=== PATIENT | male | born 1935 | race Caucasian/White ===

== ENCOUNTER 2017-05-23 02:30 | Inpatient (IN) | payer MEDICARE ==
[~2017-05-23] VITALS: Ht 188 cm; Wt 78.2 kg
[2017-05-23] VITALS (15 sets, daily range): BP systolic 100–168; BP diastolic 58–85; PULSE 65–101; RESP 16–23; O2SAT 93–100
[~2017-05-23 02:30] MED LIST: ACET325T51 PO; ASPI-973 PO; ATOR20TA PO; BISA10SU61 RC; ECON15CR10 TOP; FERR-83 PO; HYDR-4003 PO; LEVO150T5 PO; LISI-567 PO; LOPE1TAB13 PO; MIRT15TA PO; MULT-1018 PO; QUET25TA PO
--- NOTE | 2017-05-23 02:38 | ED.REPORT ---
HPI-Hip/Pelvis Prob/Inj Date of Service May 23, 2017 ED Provider: Long Bush MD Pt is a 81 year old male with a history of HTN, Alzheimer's disease, and dementia who presents to the ED via EMS complaining of left hip pain onset prior to arrival. Per EMS, [facility]. He was found next to his chair and was presumed to have fallen out of his chair, resulting in his left hip pain. The pt was provided Fentanyl en route, the pt to be drowsy on arrival. HPI is limited by pt's condition. Nursing Notes Stated Complaint: LEFT HIP PAIN Chief Complaint: Left hip pain Nursing Notes Reviewed: Yes Allergies: Coded Allergies: No Known Allergies (Verified Allergy, Unknown, 09/18/15) Scheduled Aspirin (Aspirin) 81 Mg Tablet 81 MG PO DAILY Atorvastatin (Lipitor) 20 Mg Tablet 20 MG PO DAILY Econazole Nitrate (Econazole Nitrate) 15 Gm Cream..g. 1 APPL TOP DAILY Ferrous Sulfate (Ferrous Sulfate) 325 Mg Tablet 325 MG PO DAILY Levothyroxine (Levothyroxine) 150 Mcg Tablet 150 MCG PO DAILY Lisinopril (Lisinopril) 20 Mg Tablet 20 MG PO DAILY Mirtazapine (Remeron) 15 Mg Tablet 15 MG PO HS Multivitamin (Multi Vitamin Daily) 1 Each Tablet 1 EACH PO DAILY Quetiapine Fumarate (Seroquel) 25 Mg Tablet 25 MG PO HS Scheduled PRN Acetaminophen (Acetaminophen) 325 Mg Tablet 650 MG PO Q4H PRN PRN For Fever Bisacodyl (Dulcolax Rectal) 10 Mg Supp.rect 10 MG RC DAILY PRN PRN For Bowel Movement Hydrocodone-Acetaminophen 5-325 mg (Hydrocodone-Acetaminophen 5-325 mg) 1 Each Tablet 2 TABLET PO Q4H PRN PRN For Pain Loperamide/Simethicone (Imodium Multi-Symptom Rel Cplt) 1 Each Tablet 1 EACH PO DIRECTED PRN PRN LOOSE STOOL General Time Seen by Provider: 02:30 Chief Complaint Hip injury left Hx Obtained From: Patient, EMS Arrived By: Ambulance Onset Occurred: Just prior to arrival Symptom Duration: Since onset Caused by: Accidental Quality: Painful Radiation: Does not radiate Severity: Current: Moderate Severity: Maximum: Moderate Recent Healthcare: No recent doctor visit, No recent hospitalization Similar Sx Previous: No Past Medical History Past Medical History Hypertension Alzheimer's Dementia UTI Melanoma Past Surgical History Hernia repair x2. History of skin cancer. Thyroidectomy. Pacemaker Smoking History Never Smoker Social History Resides at [facility] Alcohol Use: Denies alcohol use Drug Use: Denies drug use Ambulatory Status Independent Review of Systems ROS limited by pt's condition. Constitutional: Denies: Fever Musculoskeletal: Reports: Joint pain (left hip) Complete sys rev & neg: except as marked. Physical Exam Initial Vital Signs Vital Signs (First) Date Time Temp Pulse Resp B/P Pulse Ox O2 Delivery O2 Flow Rate FiO2 05/23/17 02:57 37.0 85 22 148/83 95 Nasal Cannula 2 Initial VS: Reviewed Head / Eyes: Atraumatic, Normocephalic Neck: Supple, Full range of motion Cardiovascular: Regular rate & rhythm, Heart sounds normal, Intact distal pulses Abdomen / GI: Soft, Non-tender Skin: Warm, Dry, No cyanosis Lower Extremity / Pelvis / MS: Neurologic intact, Vascular intact Left leg fore-shortened. No extremity trauma noted otherwise. GENERAL: Non-verbal and groans. Cannot cooperate with exam or history. Demented. Respiratory / Chest: Atraumatic, Breath sounds NL, Breath sounds = bilat Chest wall is non-tender. Back: Full range of motion Non-tender bony spine. Non-tender thoracolumbar spine. Upper Extremity / MS: Neurologic intact, Vascular intact No extremity trauma noted. Interpretation & Diagnostics Lab Results Interpretation Result Diagram: 05/23/17 0300 05/23/17 0300 Test 05/23/17 03:00 05/23/17 03:30 White Blood Count 6.3th/mm3 (3.8-10.1) Red Blood Count 3.98mil/mm3 (4.40-5.80) Hemoglobin 11.9g/dL (13.8-17.2) Hematocrit 36.9% (41.0-50.0) Mean Corpuscular Volume 92.7fL (81-100) Mean Corpuscular Hemoglobin 29.9pg (27.0-35.0) Mean Corpuscular Hemoglobin Concent 32.2% (32.0-37.0) Red Cell Distribution Width 14.6% (12.3-15.4) Platelet Count 135bil/L (150-400) Neutrophils (%) (Auto) 77.0% (40-74) Lymphocytes (%) (Auto) 14.1% (14-46) Monocytes (%) (Auto) 7.8% (4-12) Eosinophils (%) (Auto) 0.6% (0-5) Basophils (%) (Auto) 0.2% (0-3) Prothrombin Time 10.0sec (8.1-12.5) Prothromb Time International Ratio 0.94ratio Sodium Level 142mEq/L (134-144) Potassium Level 3.9mEq/L (3.5-5.2) Chloride Level 104mEq/L (97-108) Carbon Dioxide Level 24mmol/L (18-29) Blood Urea Nitrogen 27mg/dL (8-27) Creatinine 1.30mg/dL (0.76-1.27) Estimat Glomerular Filtration Rate 56mL/min (>59) Glucose Level 128mg/dL (60-99) Calcium Level 8.9mg/dL (8.5-10.1) Magnesium Level 2.0mg/dL (1.6-2.6) Total Bilirubin 0.6mg/dL (0.0-1.2) Aspartate Amino Transf (AST/SGOT) 16U/L (0-50) Alanine Aminotransferase (ALT/SGPT) 12U/L (0-44) Alkaline Phosphatase 63U/L (25-160) Troponin T 0.010ug/L (0.0-0.011) Total Protein 6.9g/dL (6.4-8.4) Albumin 3.9g/dL (3.4-5.0) Hold Kendall Top Tube Received (Received) Urine Color Yellow (YELLOW) Urine Appearance Clear (CLEAR,HAZY) Urine pH 6.0 (5.0-8.0) Urine Specific [place] 1.020 (1.003-1.035) Urine Protein 30mg/dL (NEG,TRACE) Urine Glucose (UA) Negativemg/dL (NEGATIVE) Urine Ketones Tracemg/dL (NEGATIVE) Urine Occult Blood Negative (NEGATIVE) Urine Nitrite Negative (NEGATIVE) Urine Bilirubin Negative (NEGATIVE) Urine Urobilinogen Normalmg/dL (NORMAL) Urine Leukocyte Esterase Negative (NEGATIVE) Urine RBC 0-2/hpf (0-2) Urine WBC 0-5/hpf (0-5) Urine Epithelial Cells Few/hpf (NONE-MOD) Urine Crystals None seen (NONE SEEN) Urine Bacteria Few/hpf (NONE-FEW) Urine Hyaline Casts None/lpf (NONE) Urine Granular Casts None seen (NONE SEEN) Urine Waxy Casts None seen (NONE SEEN) Urine Red Blood Cell Casts None seen (NONE SEEN) Urine White Blood Cell Casts None seen (NONE SEEN) Urine Mucus None seen (None Seen) Urine Trichomonas None seen (NONE SEEN) Urine Yeast None (NONE SEEN) Urinalysis Comment None Urine Culture Reflexed Not indicated Lab values outside NL range: no clinical significance. ECG Interpretation ECG Interpretation: Atrial fibrillation/flutter and V-paced complexes with a rate of 78 Time: 03:17 Interpreted by: ED physician X-Ray Chest Interpretation Chest Xray Interpretation: Retrocardiac left lower lobe pneumonia View: Portable, 1 view Interpretation / Wet Read by: Wet read ED physician X-Ray Interpretation Xray Interpretation: Left femoral neck fracture X-Ray Ordered: Hip left Interpretation / Wet Read by: Wet read ED physician Re-Eval/Medical Decision Med Decision/Clinical Course 81-year-old with profound dementia fell and broke his left hip. Preoperative evaluation is unremarkable with the exception of some increased density in the left lower lobe retrocardiac area. He has no other clinical evidence of pneumonia. He will be evaluated by the hospitalist service preoperatively. His case was discussed with Dr. Cha and with Dr. Restrepo Source of Hx: Old records Re-Evaluation/Progress #1: Time of Eval: 02:56 Re-Evaluation/Progress Note: Pt rechecked. He is resting comfortably. All questions addressed. Re-Evaluation/Progress #2: Time of Eval: 04:46 Re-Evaluation/Progress Note: Pt rechecked. Informed pt and his daughter of plan for admission. His daughter understands and agrees with plan for admission. All questions addressed. Re-Evaluation/Progress #3: Time of Eval: 05:18 Re-Evaluation/Progress Note: Pt rechecked. Examined pt's back. All questions addressed. Consultation #1: Referral / Consult Name: Brent Gilliland MD Consulted With: Orthopedic Call Returned at: 03:16 Procurement Internship: Agrees with eval, Agrees with plan Note: Discussed pt's case. Consultation #2: Referral / Consult Name: Naveen Cha MD Consulted With: Hospitalist Call Returned at: 04:40 Procurement Internship: Will see patient, Agrees with eval, Agrees with plan, Accepts admit Counseled Regarding: Diagnosis, Lab results, Need for admission Discharge & Departure Impression: Primary Impression: Hip fracture, left Encounter type: initial encounter Fracture type: closed Qualified Code: S72.002A - Fracture of unspecified part of neck of left femur, initial encounter for closed fracture Disposition: ADMITTED TO HOSPITAL Discharge Condition All VS Reviewed: Yes Condition: Stable Referrals: NOPCP (PCP) Ryan Fleming Attestation Portions of this note were transcribed by Linda Jiménez. I, Dr. Bush personally performed the history, physical exam and medical decision-making; I reviewed and confirmed the accuracy of the information in the transcribed note. Signed by: Charity Mccoy, 05/23/17. copies to: Ryan Fleming Howard L MD May 23, 2017 02:38 Linda Schultz May 23, 2017 02:52
[2017-05-23 03:07] LABS: BASOPHILS % (AUTO) 0.2 % (0-3); EOSINOPHILS % (AUTO) 0.6 % (0-5); MONOCYTES % (AUTO) 7.8 % (4-12); Mean Corpuscular Hemoglobin 29.9 pg (27.0-35.0); Mean Corpuscular Volume 92.7 fL (81-100); Platelet Count 135 bil/L (150-400)
[2017-05-23 03:26] LABS: INR 0.94 ratio
[2017-05-23 03:31] LABS: TROPONIN T 0.01 ug/L (0.0-0.011)
[2017-05-23 04:20] LABS: APPEARANCE,URINE CLEAR (CLEAR,HAZY); COLOR,URINE YELLOW (YELLOW); OCCULT BLOOD,URINE NEGATIVE (NEGATIVE); UROBILINOGEN,URINE NORMAL (NORMAL)
[2017-05-23] MEDS ORDERED: Alum-Mag Hydrox-Simeth 30 mL Suspension PO PRN (04:50)
[2017-05-23] MEDS ORDERED: Polyethylene Glycol (PEG) 17 Gm Powder PO PRN ×2 (04:50→16:10)
[2017-05-23] MEDS ORDERED: Ondansetron 2 mg/mL 2 mL Inj IVPUSH PRN ×3 (04:50→16:10)
--- NOTE | 2017-05-23 04:56 | PCM.HPMED ---
Subjective Date of Service May 23, 2017 Primary Provider: Admitting Physician: Primary Care Physician: Alvaro Attending Physician: Admit Status: From the Emergency Department, Full Admit, Non-Telemetry Chief Complaint: Left hip pain History of Present Illness: Sal Cleary is a 81 year old male with Hypertension, Alzheimer's disease, and Hypothyroidism who presents to [facility] emergency department via EMS complaining of left hip pain onset prior to arrival. Details of what happen is unclear and the patient is demented, unable to give any details. Daughter was able to provide some details. [facility] at [facility] found the patient on the floor next to his chair in his bed room. It was suspected he might have fallen. The staff tried to get him up to his bed but the patient was uncomfortable and looked like he was in pain. They called 911 Patient had s hip fracture last year and under went surgery with no problems Case discussed with Dr Bush who contacted Dr Gilliland (Orthopedics). X ray confirmed hip fracture and the patient was admitted Review of Systems: unable to obtain due to dementia Allergies Coded Allergies: No Known Allergies (Verified Allergy, Unknown, 09/18/15) Home Medications From [facility], not yet confirmed Sal Cleary [id number] 1935 11/02/2016 01:40 PM 09/06 Aspirin Low Dose 81 mg tablet,delayed release take 4 tablet by oral route every day galantamine ER 24 mg 24 hr capsule,extended release take 1 capsule by oral route every day Imodium A-D 2 mg tablet take 2 tablet by oral route after 1st loose stool and 1 tablet (2 mg) after each next bowel movement; do not exceed 16 mg in 24hrs levothyroxine 200 mcg tablet take 1 tablet by oral route every day Lipitor 20 mg tablet take 1 tablet by oral route every day Milk of Magnesia 400 mg/5 mL oral suspension take 30 milliliter by oral route every day as needed, followed by a full glass (8 oz) of liquid QUETIAPINE 25MG TABLETS TAKE 1 TABLET BY MOUTH EVERY NIGHT AT BEDTIME Remeron 15 mg tablet take 1 tablet by oral route every day before bedtime Toprol XL 25 mg tablet,extended release take 1 tablet by oral route every day Tylenol 325 mg tablet take 1 tablet by oral route every 4 hours as needed PMH Sick sinus syndrome, status post dual chamber pacemaker placement in 2010. Hypertension. Advanced dementia (presumed Alzheimer's type). Hypothyroidism. Essential tremors. Hyperlipidemia. . Surgical History Status post thyroidectomy. Status post hernia repairs x5. Pacemaker placement Open reduction, internal fixation, right nondisplaced subcapital femoral neck fracture. Family History unable to be obtained due to dementia Social History Hx Alcohol Use: No Hx Substance Use: No Hx Tobacco Use: No Smoking Status: Never Smoker Living Arrangement: Other ([facility]) Exam Vital Signs Vital Sign - Last Date Time Temp Pulse Resp B/P Pulse Ox O2 Delivery O2 Flow Rate FiO2 05/23/17 04:46 90 23 139/78 93 Room Air 2 Nasal Cannula 05/23/17 02:57 37.0 Exam General: Alert, Oriented X3, Cooperative, No acute Distress Eyes: PERRLA, Scleral Anicteric Mouth: Mouth Normal, Mucous Membranes Moist/[place] Neck: Supple, no Thyromegaly, trachea central. Chest & Lungs: Clear to auscultation & percussion, No adventitious breath sounds, no crackles, no wheeze Cardiovascular: Normal S1, Normal S2, No Murmurs/Rubs/Gallops, Regular Rate/ Rhythm, Murmur, Other (No JVD, no peripheral edema) Pulses: Radial (present and equal), Dorsalis Pedi (present and equal) Abdomen: Soft, Non-tender, Non-distended, Normoactive bowel tones. Musculoskeletal: Unremarkable. Normal range of motion, no swollen or erythematous joints Extremities: No edema, no cyanosis, no clubbing. Skin: No rashes. Warm and dry, no erythematous areas Neurological: Grossly neurologically intact, has generalized weakness, Normal Speech, Sensation Intact Lymphatic: Lymph nodes Cervical and Axillary not palpable. Lab and Diagnostics Labs Laboratory Tests Test 05/23/17 03:00 05/23/17 03:30 White Blood Count 6.3th/mm3 (3.8-10.1) Red Blood Count 3.98mil/mm3 (4.40-5.80) Hemoglobin 11.9g/dL (13.8-17.2) Hematocrit 36.9% (41.0-50.0) Mean Corpuscular Volume 92.7fL (81-100) Mean Corpuscular Hemoglobin 29.9pg (27.0-35.0) Mean Corpuscular Hemoglobin Concent 32.2% (32.0-37.0) Red Cell Distribution Width 14.6% (12.3-15.4) Platelet Count 135bil/L (150-400) Neutrophils (%) (Auto) 77.0% (40-74) Lymphocytes (%) (Auto) 14.1% (14-46) Monocytes (%) (Auto) 7.8% (4-12) Eosinophils (%) (Auto) 0.6% (0-5) Basophils (%) (Auto) 0.2% (0-3) Prothrombin Time 10.0sec (8.1-12.5) Prothromb Time International Ratio 0.94ratio Sodium Level 142mEq/L (134-144) Potassium Level 3.9mEq/L (3.5-5.2) Chloride Level 104mEq/L (97-108) Carbon Dioxide Level 24mmol/L (18-29) Blood Urea Nitrogen 27mg/dL (8-27) Creatinine 1.30mg/dL (0.76-1.27) Estimat Glomerular Filtration Rate 56mL/min (>59) Glucose Level 128mg/dL (60-99) Calcium Level 8.9mg/dL (8.5-10.1) Magnesium Level 2.0mg/dL (1.6-2.6) Total Bilirubin 0.6mg/dL (0.0-1.2) Aspartate Amino Transf (AST/SGOT) 16U/L (0-50) Alanine Aminotransferase (ALT/SGPT) 12U/L (0-44) Alkaline Phosphatase 63U/L (25-160) Troponin T 0.010ug/L (0.0-0.011) Total Protein 6.9g/dL (6.4-8.4) Albumin 3.9g/dL (3.4-5.0) Hold Kendall Top Tube Received (Received) Urine Color Yellow (YELLOW) Urine Appearance Clear (CLEAR,HAZY) Urine pH 6.0 (5.0-8.0) Urine Specific [place] 1.020 (1.003-1.035) Urine Protein 30mg/dL (NEG,TRACE) Urine Glucose (UA) Negativemg/dL (NEGATIVE) Urine Ketones Tracemg/dL (NEGATIVE) Urine Occult Blood Negative (NEGATIVE) Urine Nitrite Negative (NEGATIVE) Urine Bilirubin Negative (NEGATIVE) Urine Urobilinogen Normalmg/dL (NORMAL) Urine Leukocyte Esterase Negative (NEGATIVE) Urine RBC 0-2/hpf (0-2) Urine WBC 0-5/hpf (0-5) Urine Epithelial Cells Few/hpf (NONE-MOD) Urine Crystals None seen (NONE SEEN) Urine Bacteria Few/hpf (NONE-FEW) Urine Hyaline Casts None/lpf (NONE) Urine Granular Casts None seen (NONE SEEN) Urine Waxy Casts None seen (NONE SEEN) Urine Red Blood Cell Casts None seen (NONE SEEN) Urine White Blood Cell Casts None seen (NONE SEEN) Urine Mucus None seen (None Seen) Urine Trichomonas None seen (NONE SEEN) Urine Yeast None (NONE SEEN) Urinalysis Comment None Urine Culture Reflexed Not indicated Result Diagram: 05/23/1729905/23/17299 Assessment & Plan Sal Cleary is a 81 year old male with Hypertension, Alzheimer's disease, and Hypothyroidism who presents to [facility] emergency department via EMS complaining of left hip pain 1. Acute Left femoral neck fracture. Present on admission. Patient is an acceptable candidate for surgery. No active cardiac conditions. Exercise tolerance is good and I do not recommend any further cardiac testing prior to this intermediate risk procedure - nothing by mouth and Dilaudid IV as need for pain - continue his beta jun postoperatively - DVT prophylaxis with SCD boots, anticoagulation choice accordingly to Ortho - postoperative pain should be treated but psychoactive medications should be minimized to avoid delirium - post operative incentive spirometry - Dr Gilliland consulted from Orthopedics - discussed case with Daughter 2 Acute Kidney injury. Present on admission Likely due to pre renal azotemia in the setting of hypovolemia - IV fluids with normal saline - avoid nephrotoxic insults in hospital 3 Hypertension. Presumed stable - continue Toprol XL 25 mg daily 4 Hypothyroidism. - continue Levothyroxine 200 mcg daily 5 Advanced dementia, Alzheimer's type - continued Remeron 15 mg HS and Seroquel 25 mg HS 6 Hyperlipidemia. - continued Lipitor 20 mg daily - Acetaminophen as needed for mild pain/fever/headache - Bowel regimen as needed - Antiemetic as needed Patient admitted under inpatient status with expected length of stay > 2 midnights for severity of present symptoms, complexities of treatment plan and risk for adverse event . Resuscitation Status: DNR/DNI:Do Not Resuscitate/Intubate Naveen Cha MD May 23, 2017 04:56
--- NOTE | 2017-05-23 05:35 | NUR ---
Admit Patient arrived to floor at 0525. Patient alert to self only. Patient's daughter at bedside. Vitals stable. 2L O2 via NC. Report given by Cinthya GALINDO. Care continues.
[2017-05-23] MEDS ORDERED: 0.9% Sodium Chloride 1,000 ML IV SCH (06:25)
[2017-05-23] MEDS: HYDROmorphone 1 mg/mL Inj IVPUSH PRN ×2 (06:27→13:27)
--- NOTE | 2017-05-23 06:30 | PCM.ADCARE ---
Advance Care Planning Note Purpose of Encounter: Active Diagnoses: Alzheimer's dementia Hypertension Hypothyroidism These active diagnoses are sufficient risk that focused discussion on advance car planning is indicated in order to allow the patient to thoughtfully consider personal goals of care and if situations arise that prevent the ability to personally give input to insure appropriate representation of their personal desires through documentation or informed surrogate decision makers Parties in Attendance: patient, daughter and me Decisional Capacity: Poor as patient is demented Goals of Care Determinations: The daughter is aware of the current diagnosis and would like for the patient to be DNR/DNI. CODE STATUS: DNR/DNI Time Spent Adv.Care Planning: Total time spent [id number] in education and discussion directly related to Advance Care Plannin minutes Naveen Cha MD May 23, 2017 06:30
--- NOTE | 2017-05-23 08:39 | DRSVH ---
PROCEDURE: X-RAY PELVIS W/LAT HIP (LT) ([id number]) INDICATIONS: fall, left hip pain TECHNIQUE: AP pelvis with lateral view(s) of the left hip(s). COMPARISON: None. FINDINGS: Bones: No right-sided fractures or dislocations bilaterally but there is a comminuted intertrochante dillon left hip fracture and prior cannulated in screw in the well-healed right subcapital femoral neck fracture. Pelvic ring appears intact. No suspicious bony lesions. Soft tissues: The visualized bowel gas pattern is normal. No suspicious soft tissue calcifications. IMPRESSION: Comminuted acute left intertrochanteric hip fracture, well-healed prior subcapital right femoral neck fracture. Dictated by: Mayco Fuchs M.D. on 05/23/2017 at 8:37 Approved by: Mayco Fuchs M.D. on 05/23/2017 at 8:38
--- NOTE | 2017-05-23 08:41 | DRSVH ---
PROCEDURE: X-RAY CHEST ONE VIEW, PORTABLE ([id number]) INDICATIONS: preop TECHNIQUE: One view of the chest was acquired. COMPARISON: [facility], CR, XR CHEST 1VW (PORTABLE), 11/30/2015, 16:10. FINDINGS: Surgical changes and devices: Dual-chamber pacemaking device and leads appear normal. Lungs and pleura: No pleural effusions or pneumothorax. Lungs are unchanged with reduced inspiratio n and chronic interstitial prominence. Mediastinum: Mediastinal contours appear normal. Heart size is normal. Bones and chest wall: No suspicious bony lesions. Overlying soft tissues appear unremarkable. IMPRESSION: Cardiac pacemaking device and dual chamber leads normal, no evidence for underlying pneumonia or neoplasm. Reduced inspiratory volume, ionic mild interstitia l prominence. Dictated by: Mayco Fuchs M.D. on 05/23/2017 at 8:38 Approved by: Mayco Fuchs M.D. on 05/23/2017 at 8:40
--- NOTE | 2017-05-23 08:47 | PCM.CONORT ---
Subjective Date of Surgery: May 23, 2017 Surgeon Admitting Provider:Naveen Cha MD Attending Provider:Hermann Montaño MD Primary Care Physician:Alvaro Other Provider: Reason for Consultation: Left hip pain Allergy Allergies: Coded Allergies: No Known Allergies (Verified Allergy, Unknown, 09/18/15) Medications Acetaminophen (Acetaminophen) 325 Mg Tablet 650 MG PO Q4H PRN PRN For Fever ( Reported) Aspirin (Aspirin) 81 Mg Tablet 81 MG PO DAILY (Reported) Atorvastatin (Lipitor) 20 Mg Tablet 20 MG PO DAILY (Reported) Bisacodyl (Dulcolax Rectal) 10 Mg Supp.rect 10 MG RC DAILY PRN PRN For Bowel Movement (Reported) Econazole Nitrate (Econazole Nitrate) 15 Gm Cream..g. 1 APPL TOP DAILY (Reported ) Ferrous Sulfate (Ferrous Sulfate) 325 Mg Tablet 325 MG PO DAILY (Reported) Levothyroxine (Levothyroxine) 150 Mcg Tablet 150 MCG PO DAILY (Reported) Loperamide/Simethicone (Imodium Multi-Symptom Rel Cplt) 1 Each Tablet 1 EACH PO DIRECTED PRN PRN LOOSE STOOL (Reported) Mirtazapine (Remeron) 15 Mg Tablet 15 MG PO HS (Reported) Multivitamin (Multi Vitamin Daily) 1 Each Tablet 1 EACH PO DAILY (Reported) Quetiapine Fumarate (Seroquel) 25 Mg Tablet 25 MG PO HS (Reported) Last Taken: Unknown Dose on 05/22/171999 Discontinued Medications Hydrocodone-Acetaminophen 5-325 mg (Hydrocodone-Acetaminophen 5-325 mg) 1 Each Tablet 2 TABLET PO Q4H PRN PRN For Pain Prescribed by: NATALI NEWMAN MD Lisinopril (Lisinopril) 20 Mg Tablet 20 MG PO DAILY (Reported) History History of ENT Problems?: No HEENT History: Denies:: Abnormal Airway Cataracts Difficult Intubation Dysphagia Glaucoma Hearing Problem Sinus Problem TMJ Denture Type: None Teeth Condition: Within Normal Limits Hx of Heart Problems?: Yes Cardiovascular History: Positive for:: Cardiac Surgery Hypertension Irregular Heartbeat Pacemaker (2010) Denies:: Chest Pain Congestive Heart Failure Edema Heart Murmur Thrombophlebitis Hx of Respiratory Problem?: No Respiratory History: Denies:: Asthma COPD Chest Surgery Cough Dyspnea Emphysema Hemoptysis Oxygen Administration Pneumonia Pulmonary Embolism Tuberculosis Use of C-PAP Machine Use of Inhalers / NEBS Hx Neurologic Problems?: Yes Neurological History: Positive for:: Alzheimer's Disease Dementia Parkinson's Disease Denies:: CVA Dizziness Headaches Seizures Hx of GI Problems?: Yes Hx of Problems?: Yes Genitourinary History: Positive for:: Urinary Tract Infection Denies:: HX of Hemodialysis Kidney Stones HX of Peritoneal Dialysis: No Male Hx: Denies:: Prostate Problems Scrotal Mass Testicular Surgery Hx Musculoskeletal Problems?: Yes Musculoskeletal History: Positive for:: Joint Replacement (right hip) Denies:: Back Injury Musculoskeletal Trauma Other History/Comment Sal Cleary is an 81-year-old male patient who presents to the ER and an orthopedic consult for orthopedic evaluation of their left hip with ongoing symptoms. The patient states that their pain is a distal in nature and mild/ moderate in severity localized in the hip and groin without radiation. This has been progressing over the past few hours after unwitnessed fall from standing. Moreover, the pain is exacerbated by activities, especially with all movement. . Rest seems to improve the symptoms. Patient reports no previous hip pain or associated symptoms with no c licking, no stiffness, no swelling, or weakness. Previous treatment has included none. There is no reports numbness, tingling, or weakness to the affected distal lower extremity. There is no known history of hip problems as a child/adolescent such as SCFE, Perthes, dysplasia, OI, or ligamentous laxity. The patient denies any fever, chills, nausea, vomiting, chest pain, shortness of breath, or calf tenderness. Work/hobbies/sports include: Presents with daughter who is power of attorney lawyer, lives in a memory care center Hx of Psycho/Social Problems?: No Psycho Social History: Positive for:: Hx Depression Denies:: Anxiety Bipolar Disorder Suicide Attempt Hx Surgeries?: Yes (right pinning of hip) Hx Any Other Health Problems?: Yes Other History: Positive for:: Cancer (melanoma head and wrist) Hospitalization Thyroid Disease Denies:: Endocrine Disease History Blood Transfusions: Positive for:: Accept Blood Products? Denies:: Blood Transfuse Reaction Blood Transfusions Hx Diabetes: No Hx Alcohol Use: NoHx Substance Use: No Smoking Status: Never Smoker Have You Smoked inLast 12 mo: No Objective Exam Vital Signs & I/O Vital Sign- Last 8 Hours Date Time Temp Pulse Resp B/P Pulse Ox O2 Delivery O2 Flow Rate FiO2 9/21/17 05:39 37.5 65 20 165/75 100 Nasal Cannula 2.00 05/23/17 04:46 90 23 139/78 93 Room Air 2 Nasal Cannula 05/23/17 02:57 37.0 85 22 148/83 95 Nasal Cannula 2 Intake and Output- Last 8 Hour 05/23/17 Cumulative From/Thru 07:00 05/23/17 02:57 - 05/23/17 05:57 Intake Total 0 ml 0 ml Output Total 200 ml 200 ml Balance -200 ml -200 ml Intake Oral 0 ml 0 ml Output Urine Total 200 ml 200 ml # Bowel Movements 1 1 Lab & Micro Results Laboratory Tests Test 05/23/17 03:00 05/23/17 03:30 White Blood Count 6.3th/mm3 (3.8-10.1) Red Blood Count 3.98mil/mm3 (4.40-5.80) Hemoglobin 11.9g/dL (13.8-17.2) Hematocrit 36.9% (41.0-50.0) Mean Corpuscular Volume 92.7fL (81-100) Mean Corpuscular Hemoglobin 29.9pg (27.0-35.0) Mean Corpuscular Hemoglobin Concent 32.2% (32.0-37.0) Red Cell Distribution Width 14.6% (12.3-15.4) Platelet Count 135bil/L (150-400) Neutrophils (%) (Auto) 77.0% (40-74) Lymphocytes (%) (Auto) 14.1% (14-46) Monocytes (%) (Auto) 7.8% (4-12) Eosinophils (%) (Auto) 0.6% (0-5) Basophils (%) (Auto) 0.2% (0-3) Prothrombin Time 10.0sec (8.1-12.5) Prothromb Time International Ratio 0.94ratio Sodium Level 142mEq/L (134-144) Potassium Level 3.9mEq/L (3.5-5.2) Chloride Level 104mEq/L (97-108) Carbon Dioxide Level 24mmol/L (18-29) Blood Urea Nitrogen 27mg/dL (8-27) Creatinine 1.30mg/dL (0.76-1.27) Estimat Glomerular Filtration Rate 56mL/min (>59) Glucose Level 128mg/dL (60-99) Calcium Level 8.9mg/dL (8.5-10.1) Magnesium Level 2.0mg/dL (1.6-2.6) Total Bilirubin 0.6mg/dL (0.0-1.2) Aspartate Amino Transf (AST/SGOT) 16U/L (0-50) Alanine Aminotransferase (ALT/SGPT) 12U/L (0-44) Alkaline Phosphatase 63U/L (25-160) Troponin T 0.010ug/L (0.0-0.011) Total Protein 6.9g/dL (6.4-8.4) Albumin 3.9g/dL (3.4-5.0) Hold Kendall Top Tube Received (Received) Urine Color Yellow (YELLOW) Urine Appearance Clear (CLEAR,HAZY) Urine pH 6.0 (5.0-8.0) Urine Specific [place] 1.020 (1.003-1.035) Urine Protein 30mg/dL (NEG,TRACE) Urine Glucose (UA) Negativemg/dL (NEGATIVE) Urine Ketones Tracemg/dL (NEGATIVE) Urine Occult Blood Negative (NEGATIVE) Urine Nitrite Negative (NEGATIVE) Urine Bilirubin Negative (NEGATIVE) Urine Urobilinogen Normalmg/dL (NORMAL) Urine Leukocyte Esterase Negative (NEGATIVE) Urine RBC 0-2/hpf (0-2) Urine WBC 0-5/hpf (0-5) Urine Epithelial Cells Few/hpf (NONE-MOD) Urine Crystals None seen (NONE SEEN) Urine Bacteria Few/hpf (NONE-FEW) Urine Hyaline Casts None/lpf (NONE) Urine Granular Casts None seen (NONE SEEN) Urine Waxy Casts None seen (NONE SEEN) Urine Red Blood Cell Casts None seen (NONE SEEN) Urine White Blood Cell Casts None seen (NONE SEEN) Urine Mucus None seen (None Seen) Urine Trichomonas None seen (NONE SEEN) Urine Yeast None (NONE SEEN) Urinalysis Comment None Urine Culture Reflexed Not indicated Result Diagram: 05/23/17 0300 05/23/17 030 Review of Systems: Constitutional: Negative, except as otherwise mentioned in the history above. Ophthalmologic: Negative, except as otherwise mentioned in the history above. Cardiovascular: Negative, except as otherwise mentioned in the history above. Respiratory: Negative, except as otherwise mentioned in the history above. Gastrointestinal: Negative, except as otherwise mentioned in the history above. Genitourinary: Negative, except as otherwise mentioned in the history above. Musculoskeletal: Negative, except as otherwise mentioned in the history above. Neurological: Negative, except as otherwise mentioned in the history above. Psychiatric: Negative, except as otherwise mentioned in the history above. Hematologic/Lymphatic: Negative, except as otherwise mentioned in the history above. Allergic/Immunologic: Negative, except as otherwise mentioned in the history above. H&P Surgical Exam Exam Musculoskeletal: CONST: WD,WN, NAD, A+OX3 OCULAR: EOMI, no conjunctivitis/icterus ENT: no deformities, scars or lesions CARDIAC: Pulse is regular. No cyanosis,clubbing,edema RESP: regular,unlabored MSK: normal light touch SPN/DPN/TN distributions. 5/5 DF/PF/Inv/Ev, 2+ DP Left HIP - scars.- swelling, - erythema - atrophy or asymmetry. TTP GT- mild, mildly shortened, external rotated ROM logroll-painful Strength Deferred - calf tenderness Signs Deferred Additional Information Two-view x-ray of the left hip demonstrate a displaced comminuted left intertrochanteric fracture H&P Preop Plan Impression Left displaced intertrochanteric hip fracture Problems: Risks & Benefits * We have reviewed the risks and benefits as well as the alternatives to surgery. All questions were answered to the patient's satisfaction and a counseling note to that effect. The patient has provided informed consent. * I have counseled the patient regarding the deleterious effects that smoking during the perioperative period can have upon wound healing, infection rates, and the overall rate of complications. Plan Nonweightbearing left lower extremity Recommend CT scan of left hip Recommend x-ray of left femur Nothing by mouth after midnight for left hip closed reduction intramedullary nail fixation Please discontinue anticoagulation Medical optimization for surgery today Continue medical management with primary DVT prophylaxis with SCD/MIRNA hose Please call with questions I reviewed my findings with the patient and daughter who is power of attorney lawyer. The patient remains symptomatic following the initial injury. In light of the ongoing symptoms, our plan is to proceed with surgical intervention. I have explained to the patient the nature of the surgery as well as the perioperative recovery including the risks, benefits and alternatives. A clear explanation was given to the patient regarding the condition present, and the available conservative and surgical options. It was emphasized that the risks and benefits of surgery include but are not limited to infection, wound healing problems, damage to adjacent structures such as nerves, blood vessels and tendons, ferry terminal supervisor disability and pain, arthritis, hypersensitivity, deep vein thrombosis, pulmonary embolism, broken hardware, failure of surgery, need for further procedures at time of surgery or later, loss of limb, heart attack, stroke, and . The patient was given an explanation and the patient voiced understanding of what to expect after the procedure or surgery, the limitations in activities of daily living, the likely duration for post operative recovery and the instructions that are to be followed. At the end the patient was invited to seek clarification or ask further questions but there were none. I have advised the patient first that there are no guarantees as to outcome and that their ultimate improvement is largely based on the extent of the pre-existing underlying pathology. The patient was instructed to be n.p.o. past midnight The patients questions were answered and they stated understanding of the nature of the surgical procedure and gave written and verbal consent to proceed. The patient voiced understanding of the entire consultation. Brent Gilliland MD May 23, 2017 08:47
[2017-05-23] MEDS ORDERED: Ketamine 10 mg/mL 20 mL Inj ONE (08:51)
[2017-05-23] MEDS ORDERED: Phenylephrine/NS 100 mCg/mL 10 mL Syringe IVPUSH ONE (08:51)
[2017-05-23] MEDS ORDERED: QUET25TA73 (10:17)
[2017-05-23] MEDS ORDERED: GALA24CA (10:17)
[2017-05-23] MEDS ORDERED: MIRT15TA6 (10:17)
[2017-05-23] MEDS ORDERED: METO-386 (10:17)
[2017-05-23] MEDS ORDERED: LEVO175T5 PO (10:17)
[2017-05-23] MEDS ORDERED: CeFAZolin Inj 2 GM in IV Premix 1 EACH IV SCH ×2 (11:55→16:30)
--- NOTE | 2017-05-23 13:30 | NUR ---
Off floor Patient off floor to CT. Medicated with 0.5mg IV dilaudid prior to going to CT.
--- NOTE | 2017-05-23 13:58 | DRSVH ---
PROCEDURE: CT HIP LEFT W/O CONTRAST (79507) INDICATIONS: left hip fracture TECHNIQUE: Noncontrast 3 mm axial sections acquired through the bony pelvis. Additional 3 mm axial sections acq uired through the symptomatic hip joint, with coronal and sagittal reformats. COMPARISON: [facility], CT, CT HIP RT WO CON, 11/30/2015, 10:39. [facility]GED WITH [facility] , CR, XR HIP 1VW RT, 03/16/2016, 9:56. [facility], CR, XR PELVIS W LATERAL HIP LT, 017, 2:39. FINDINGS: Image quality: Excellent. Bones: There is a comminuted fracture involving the intertrochanteric region of the left proximal fem ur as well as a left proximal femoral shaft. Impaction of fracture fragments is seen and there is va lety angulation of the primary fracture fragments. There is avulsion seen of the lesser trochanter No left hip dislocation can be seen. No displaced fractures are seen involving the talus. There are 3 screws seen transfixing a prior right femoral neck fracture. Age-appropriate osteopenia is seen. Soft tissues: A Felix catheter is seen. No dilated loops of bowel are seen. No frankly enlarged lym ph nodes can be seen. Atherosclerotic calcification is noted. IMPRESSION: Complex, comminuted fracture of the intertrochanteric region of the left proximal femur a nd the left proximal femoral shaft. Prior postoperative change of the right femoral neck. Dictated by: Mark Cedeño M.D. on 05/23/2017 at 13:51 Approved by: Mark Cedeño M.D. on 05/23/2017 at 13:56
[2017-05-23 14:17] LABS: BASOPHILS % (AUTO) 0.2 % (0-3); EOSINOPHILS % (AUTO) 0 % (0-5); MONOCYTES % (AUTO) 9.4 % (4-12); Mean Corpuscular Hemoglobin 30.1 pg (27.0-35.0); Mean Corpuscular Volume 92.4 fL (81-100); NEUTROPHILS % (AUTO) 77.5 % (40-74); Platelet Count 114 bil/L (150-400)
[2017-05-23] MEDS ORDERED: Lactated Ringer's 500 ML IV PRN (15:06)
[2017-05-23] MEDS ORDERED: Lactated Ringer's 1,000 ML IV SCH (15:06)
[2017-05-23] MEDS ORDERED: Lactated Ringer's 1,000 ML IV ONE ×3 (15:06→17:45)
--- NOTE | 2017-05-23 15:06 | PCM.HPANE ---
Patient Data Surgeon Admitting Provider:Naveen Cha MD Attending Provider:Hermann Mnotaño MD Primary Care Physician:Alvaro Other Provider: Reason for Visit Left Hip Fracture/Dementia Ht/WT & BMI Height (Feet): 6 Height (Inches): 2.00 Weight (Kilograms): 75.500 Body Mass Index 21.36 Allergies Coded Allergies: No Known Allergies (Verified Allergy, Unknown, 09/18/15) Past Anesthesia History Anesthesia History: Denies:: Abnormal Airway, Anesthesia Reactions, Difficult Intubation Diabetes History Hx Diabetes?: No MRSA MRSA: No Medications Hypertension Medication: Yes Home Meds Incl Beta Rut: Yes Date Beta Rut Taken: May 23, 2017 Reported Medications Galantamine ER 24 Mg Cap24h.pel #90 05/23/17 Metoprolol Succinate ER 25 Mg Tab.er.24h #90 05/23/17 Levothyroxine 175 Mcg [id number] Mcg PO DAILY #30 05/23/17 Aspirin 81 Mg [id number] Mg PO DAILY Ref 0 11/30/15 Acetaminophen 325 Mg [id number] Mg PO Q4H PRN For Fever Ref 0 11/30/15 Bisacodyl (Dulcolax Rectal)10 Mg Supp.rect10 Mg RC DAILY PRN For Bowel Movement 30 Days Ref 0 11/30/15 Quetiapine Fumarate (Seroquel)25 Mg [id number] Mg PO HS Ref 0 11/30/15 Mirtazapine (Remeron)15 Mg Wonbkn77 Mg PO HS Ref 0 11/30/15 Discontinued Reported Medications Mirtazapine 15 Mg Tablet #90 05/23/17 Quetiapine Fumarate 25 Mg Tablet #30 05/23/17 Loperamide/Simethicone (Imodium Multi-Symptom Rel Cplt)1 Each Tablet1 Each PO DIRECTED PRN LOOSE STOOL 11/30/15 Econazole Nitrate 15 Gm Cream..g.1 Appl TOP DAILY #1 TUBE 11/30/15 Lisinopril 20 Mg Rclpkw74 Mg PO DAILY 30 Days Ref 0 11/30/15 Atorvastatin (Lipitor)20 Mg Zkrtth99 Mg PO DAILY Ref 0 11/30/15 Levothyroxine 150 Mcg [id number] Mcg PO DAILY Ref 0 11/30/15 Ferrous Sulfate 325 Mg Rqdrte940 Mg PO DAILY 30 Days Ref 0 11/30/15 Multivitamin (Multi Vitamin Daily)1 Each Tablet1 Each PO DAILY 30 Days Ref 0 11/30/15 Discontinued Scripts Hydrocodone-Acetaminophen 5-325 mg 1 Each Tablet2 Tablet PO Q4H PRN For Pain # 40 TABLET Ref 0 Prov:Nikhil Aleaxnder MD 12/04/15 History History of ENT Problems?: No HEENT History: Denies:: Abnormal Airway Cataracts Difficult Intubation Dysphagia Glaucoma Hearing Problem Sinus Problem TMJ Denture Type: None Teeth Condition: Within Normal Limits Hx of Heart Problems?: Yes Cardiovascular History: Positive for:: Cardiac Surgery Hypertension Irregular Heartbeat Pacemaker (2010) Denies:: Chest Pain Congestive Heart Failure Edema Heart Murmur Thrombophlebitis Hx of Respiratory Problem?: No Respiratory History: Denies:: Asthma COPD Chest Surgery Cough Dyspnea Emphysema Hemoptysis Oxygen Administration Pneumonia Pulmonary Embolism Tuberculosis Use of C-PAP Machine Use of Inhalers / NEBS Hx Neurologic Problems?: Yes Neurological History: Positive for:: Alzheimer's Disease Dementia Parkinson's Disease Denies:: CVA Dizziness Headaches Seizures Hx of GI Problems?: Yes Hx of Problems?: Yes Genitourinary History: Positive for:: Urinary Tract Infection Denies:: HX of Hemodialysis Kidney Stones HX of Peritoneal Dialysis: No Male Hx: Denies:: Prostate Problems Scrotal Mass Testicular Surgery Hx Musculoskeletal Problems?: Yes Musculoskeletal History: Positive for:: Joint Replacement (right hip) Denies:: Back Injury Musculoskeletal Trauma Hx of Psycho/Social Problems?: No Psycho Social History: Positive for:: Hx Depression Denies:: Anxiety Bipolar Disorder Suicide Attempt Hx Surgeries?: Yes (right pinning of hip) Hx Any Other Health Problems?: Yes Other History: Positive for:: Cancer (melanoma head and wrist) Hospitalization Thyroid Disease Denies:: Endocrine Disease History Blood Transfusions: Positive for:: Accept Blood Products? Denies:: Blood Transfuse Reaction Blood Transfusions Hx Diabetes: No Hx Alcohol Use: NoHx Substance Use: No Smoking Status: Never Smoker Have You Smoked inLast 12 mo: No Stop/Bang Treated for Sleep Apnea?: No Do You Have a CPAP Machine?: No S-Snoring: Do You Snore Loudly: No T-Tired: feel tired, fatigued: No O-Obsered: Observed not breath: No P-Blood Pressure: treated: Yes B- Body Mass Index > 35 kg/m2: No A- Age over 50: Yes N- Neck Large Circumference: No G- Gender Male: Yes JOSEMANUEL Total Score: 2 JOSEMANUEL Risk Assessment: Low Risk, <3 Yes Risk Assessment Category Category 1A: Patient has history of documented sleep apnea, and HAS NOT received any narcotic, sedative or anesthesia administration during this stay. Category 1B: Patient has history of documented sleep apnea, and HAS received any narcotic , sedative or anesthesia administration during this stay Category 2: Patient has SUSPECTED Obstructive Sleep Apnea, and HAS received any narcotic , sedative or anesthesia administration during this stay. Category 3: Patient has SUSPECTED Obstructive Sleep Apnea and HAS NOT received narcotic, sedative or anesthesia administration during this stay. Category 4: Outpatient in Procedural Areas with known sleep apnea or who screen positive for High Risk via the STOP/BANG questionnaire. Exam Exam Vital Signs Vital Signs Date Time Temp Pulse Resp B/P Pulse Ox O2 Delivery O2 Flow Rate FiO2 05/23/17 14:01 37.3 80 19 134/83 100 Nasal Cannula 1.00 05/23/17 08:52 37.4 67 20 140/78 99 Nasal Cannula 2.00 General Appearance: Alert, Cooperative, Mild Distress HEENT/AIRWAY: MP 2 Lungs: Clear to Auscultation, Normal Air Movement Heart: Exam Unremarkable, Regular Rate/Rhythm, No Murmurs/Rubs/Gallops Meds/Labs/Diagnostics Admission Meds Current Medications Sodium Chloride (Normal Saline) 1,000 ml @ 100 mls/hr Q10H IV Last administered on 05/23/17t 06:34; Start 05/23/17 at 06:25 Labs Test 05/23/17 03:00 05/23/17 03:30 05/23/17 14:06 Prothrombin Time 10.0sec (8.1-12.5) Prothromb Time International Ratio 0.94ratio Sodium Level 142mEq/L (134-144) Potassium Level 3.9mEq/L (3.5-5.2) Chloride Level 104mEq/L (97-108) Carbon Dioxide Level 24mmol/L (18-29) Blood Urea Nitrogen 27mg/dL (8-27) Creatinine 1.30mg/dL (0.76-1.27) Estimat Glomerular Filtration Rate 56mL/min (>59) Glucose Level 128mg/dL (60-99) Calcium Level 8.9mg/dL (8.5-10.1) Magnesium Level 2.0mg/dL (1.6-2.6) Total Bilirubin 0.6mg/dL (0.0-1.2) Aspartate Amino Transf (AST/SGOT) 16U/L (0-50) Alanine Aminotransferase (ALT/SGPT) 12U/L (0-44) Alkaline Phosphatase 63U/L (25-160) Troponin T 0.010ug/L (0.0-0.011) Total Protein 6.9g/dL (6.4-8.4) Albumin 3.9g/dL (3.4-5.0) Hold [place]all Top Tube Received (Received) Urine Color Yellow (YELLOW) Urine Appearance Clear (CLEAR,HAZY) Urine pH 6.0 (5.0-8.0) Urine Specific [place] 1.020 (1.003-1.035) Urine Protein 30mg/dL (NEG,TRACE) Urine Glucose (UA) Negativemg/dL (NEGATIVE) Urine Ketones Tracemg/dL (NEGATIVE) Urine Occult Blood Negative (NEGATIVE) Urine Nitrite Negative (NEGATIVE) Urine Bilirubin Negative (NEGATIVE) Urine Urobilinogen Normalmg/dL (NORMAL) Urine Leukocyte Esterase Negative (NEGATIVE) Urine RBC 0-2/hpf (0-2) Urine WBC 0-5/hpf (0-5) Urine Epithelial Cells Few/hpf (NONE-MOD) Urine Crystals None seen (NONE SEEN) Urine Bacteria Few/hpf (NONE-FEW) Urine Hyaline Casts None/lpf (NONE) Urine Granular Casts None seen (NONE SEEN) Urine Waxy Casts None seen (NONE SEEN) Urine Red Blood Cell Casts None seen (NONE SEEN) Urine White Blood Cell Casts None seen (NONE SEEN) Urine Mucus None seen (None Seen) Urine Trichomonas None seen (NONE SEEN) Urine Yeast None (NONE SEEN) Urinalysis Comment None Urine Culture Reflexed Not indicated White Blood Count 5.6th/mm3 (3.8-10.1) Red Blood Count 3.96mil/mm3 (4.40-5.80) Hemoglobin 11.9g/dL (13.8-17.2) Hematocrit 36.6% (41.0-50.0) Mean Corpuscular Volume 92.4fL (81-100) Mean Corpuscular Hemoglobin 30.1pg (27.0-35.0) Mean Corpuscular Hemoglobin Concent 32.5% (32.0-37.0) Red Cell Distribution Width 14.5% (12.3-15.4) Platelet Count 114bil/L (150-400) Neutrophils (%) (Auto) 77.5% (40-74) Lymphocytes (%) (Auto) 12.7% (14-46) Monocytes (%) (Auto) 9.4% (4-12) Eosinophils (%) (Auto) 0% (0-5) Basophils (%) (Auto) 0.2% (0-3) Plan Impression Patient chart reviewed, patient interviewed and anesthestic plan with risks, benefits, and alternatives discussed, and informed consent obtained. NPO per Anesth. Guidelines: Yes ASA Physical Status: ASA3 Severe Disease Anesthetic Plan: Regional Block Bene/Risks/Altern/Consents: Yes HP Complete Prior to Induction: Yes Kevin Samuel MD May 23, 2017 15:06
[2017-05-23] MEDS ORDERED: fentaNYL-PF 50 mCg/mL 2 mL Inj IVPUSH PRN (15:10)
[2017-05-23] MEDS ORDERED: EPHEDrine Sulfate 50 mg/mL Inj IVPUSH PRN (15:10)
[2017-05-23] MEDS ORDERED: Dexamethasone 4 mg/mL Inj IVPUSH PRN (15:10)
[2017-05-23] MEDS ORDERED: Phenylephrine 10,000 mCg/mL Inj IVPUSH PRN (15:10)
--- NOTE | 2017-05-23 15:36 | NUR ---
Off Floor Pt brought up to surgery with surgical staff at approximately 1534.
[2017-05-23] MEDS: 0.9% Sodium Chloride 1,000 ML IV SCH (16:08)
[2017-05-23] MEDS ORDERED: Ketorolac 15 mg/mL Inj IVPUSH PRN (16:10)
[2017-05-23] MEDS ORDERED: Sodium Biphos-Phos 133 mL Enema RECTAL PRN (16:10)
[2017-05-23] MEDS ORDERED: MetoCLOpramide 5 mg/mL 2 mL Inj IVPUSH PRN (16:10)
[2017-05-23] MEDS ORDERED: Magnesium Hydroxide 10 mL Oral Concentration PO PRN ×2 (16:10→16:21)
[2017-05-23] MEDS ORDERED: diphenhydrAMINE 25 mg Capsule PO PRN (16:10)
--- NOTE | 2017-05-23 16:17 | PCM.ORTHOP ---
Orthopedic Operative Report Date of Service: May 23, 2017 Pre Operative Diagnosis Left comminuted intertrochanteric hip fracture Post Operative Diagnosis Same Procedure Left hip closed reduction cepahlomedullary nail fixation Surgeon Surgeon: Brent Gilliland Indication for Procedure Left hip fracture Findings Comminuted left displaced intertrochanteric fracture Details of Procedure Implant: Depuy Synthes 12 mm x 420mm 130 deg; 54mm, 115 TFNA lag screw 5.0mm lag screw Indications: This is Sal Cleary who is an 81-year-old male who sustained a left intertrochanteric hip fracture. The risks versus benefits of open reduction and internal fixation were discussed with the patient in detail. The patient voiced understanding of the risks and agreed to proceed. The risks discussed were pain, bleeding, infection, damage to neurovascular structures, failure of procedure, need for further procedures, loss of limb function, loss of limb, heart attack, stroke, and . Verbal and written consent were obtained. Description of Operation: The patient was brought to the operating room. Patient name and surgical site were confirmed. Preoperative antibiotics were given. General anesthesia was administered. The patient was placed supine on the fracture table in the standard fashion. All bony prominences were well padded. Traction was applied to the operative leg and the fracture was closed reduced under C-arm guidance. The leg and hip were then prepped and draped in the usual sterile fashion. A small longitudinal incision was made proximal to the greater trochanter. Subcutaneous dissection was bluntly performed down to the tip of the greater trochanter. A 3.2 mm guide pin was then placed through the tip of the greater trochanter and into the femoral canal under fluoroscopic guidance. This was checked in both AP and lateral views. This pin was then over-reamed with a 17 mm reamer. The ball tipped guide wire was placed into the medullary canal and advanced into the center of the distal metaphysis. The guide wire was then over-reamed in 0.5 mm increments until bony chatter was achieved at the isthmus. A tire gauge was used to determine the length of the nail. The nail implant was loaded onto the insertion jig and then gently malleted into position over the guide wire. The fracture was well reduced as confirmed with C-arm in AP and lateral views. The guide was removed. The guide pin for the hip screw was inserted to a point within 25 mm tip-to-apex distance on AP and lateral views. The size was measured. The hip screw size was selected along with the compression screw. The lateral cortex was drilled for the compression screw. The guide pin was then overdrilled and the hip screw was inserted with clear compression at the fracture once the compression screw inserted and engaged. The traction was removed and orthogonal views with fluoroscopy determined reduction of our fracture with appropriate placement of hip screw centered with a tip-to-apex distance less than 25 mm. The distal interlocking screw was then inserted in the standard fashion using the perfect [place] technique under C-arm guidance. All wounds were thoroughly irrigated by bulb irrigation. Hemostasis was obtained with electrocautery. The fascia was closed with 0 Vicryl suture. The subcutaneous space was closed with interrupted 2-0 Vicryl suture. The skin was closed with interrupted shanice. Hard copy radiographs confirmed adequate reduction and placement of hardware. The patient was extubated without difficulty and transferred to the PACU in stable condition. I was present and scrubbed for the entire procedure. Description of Findings: left intertrochanteric fracture with comminution and displacement Specimens Obtained: none You may begin protected weight bearing and advance tp partial weightbear at 25% as tolerated. Keep your wound clean, dry and intact. We will change your dressing in 2 days and continue daily dressing changes. PT/OT will be ordered. Return to clinic in 2 weeks with me with 2 view x-rays and staple/suture removal with Steri-Strips application. You may get your wound wet at that time. You may advance weightbearing to 50% if you are able to tolerate and follow- up with me in 4 weeks thereafter with additional x-rays 2 views. We will progress weightbearing to full once radiographic healing noted at 6-10 weeks. Please keep the affected extremity elevated when possible. You may use ice and/ or heat as needed for comfort. All questions and concerns were addressed. Please feel free to call with any further questions, comments, and/or concerns. You will take xarelto X 6 weeks. Grafts, Implants: Implants-See Implant Record Complications There were no periprocedural complications identified. Condition Stable Anesthetic Administered: GA Catheters: None Output, Estimated Blood Loss: 50 Blood Admin during surgery: No Surgical Cast or Splint: Other Surgical Specimen Removed: No Specimen sent to Pathology: No copies to: Brent Gilliland MD, Christopher L MD Sep 21, 2017 16:17 Brent Gilliland MD May 23, 2017 16:17
--- NOTE | 2017-05-23 16:56 | DRSVH ---
PROCEDURE: X-RAY LEFT FEMUR, TWO VIEWS ([id number]) INDICATIONS: left femur fx TECHNIQUE: 2 views of the femur were acquired. COMPARISON: [facility], CR, XR PELVIS W LATERAL HIP LT, 05/23/2017, 2:39. FINDINGS: Bones: Comminuted, minimally displaced left intratrochanteric hip fracture present similar to prior e xamination. Hip and knee joint degeneration. Soft tissues: No suspicious soft tissue calcifications or masses. IMPRESSION: No significant change in left intratrochanteric hip fracture. Dictated by: Rey BARRETO Interpreted: Rosalina Brown MD on 05/23/2017 at 13:55 Approved by: Rosalina Brown M.D. on 05/23/2017 at 16:54
[2017-05-23] MEDS ORDERED: ROPIVACAINE INJ ONE (17:07)
--- NOTE | 2017-05-23 17:14 | NUR ---
Social Work: Attempted Initial Assessment DAP: EMR reviewed. Pt is off floor in OR. SW attempted to complete assessment. Per pt's EMR, pt has dementia at baseline and is not an accurate historian. SW placed T/C to pt's NOK and left voicemail requesting return call - SW to follow-up with pt and family tomorrow. TRAVON Nunez
--- NOTE | 2017-05-23 19:15 | NUR ---
Post-op Arrival onto Unit Patient arrived onto unit at approx 1835 with PACU staff, after report given by MATEO Colby. Settled patient into bed, still groggy and sleepy, groaning with turning, but otherwise calm and settled. Blood pressure slightly elevated, report given to NOC nurse. Patient on 3L NC, elevated head of bed.
[2017-05-23] MEDS: HYDROcodone-APAP 5-325 mg Tablet PO PRN (22:32)
[2017-05-23] MEDS: Senna-Docusate 8.6-50 mg Tablet PO SCH (22:32)
[2017-05-24] MEDS: CeFAZolin Inj 2 GM in IV Premix 1 EACH IV SCH ×2 (00:52→09:32)
[2017-05-24 01:00] VITALS: BP 115/67; PULSE 86; RESP 20; O2SAT 97
--- NOTE | 2017-05-24 04:30 | NUR ---
Activity Pt remained in bed all shift, sleeping, rousing only to stimulation or care. Pt gets very angry with any care and is striking at nurse and caregivers. Requires 1:1 sitter at bedside. Pt displayed signs of pain 1 time and rec'd PRN norco. Pt with baseline dementia/alzheimers and is unable to follow direction. Continues on 2L o2 via NC and sats mid 90's, unable to comply with coughing and deep breathing, but he does cough spontaneously but is unable to clear secretions. LCTA, suction used x3 to assist with secretions but Pt becomes very angry. HOB at 45degrees. Encouraged Pt to have fluids, accepted only small amount. Felix catheter patent with minimal output, to be removed this a.m. call light in reach, sitter at bedside, care continues
[2017-05-24] MEDS: 0.9% Sodium Chloride 1,000 ML IV SCH (04:38)
[2017-05-24 05:13] VITALS: BP 134/72; PULSE 88; RESP 20; O2SAT 98
[2017-05-24 05:42] LABS: BASOPHILS % (AUTO) 0 % (0-3); EOSINOPHILS % (AUTO) 0 % (0-5); MONOCYTES % (AUTO) 11.8 % (4-12); Mean Corpuscular Hemoglobin 29.2 pg (27.0-35.0); Mean Corpuscular Volume 93.1 fL (81-100); NEUTROPHILS % (AUTO) 74.3 % (40-74); Platelet Count 115 bil/L (150-400)
[2017-05-24] MEDS: HYDROcodone-APAP 5-325 mg Tablet PO PRN ×4 (06:34→22:20)
[2017-05-24] MEDS ORDERED: MeTOProlol XL 25 mg ER24 Tablet PO SCH (08:30)
[2017-05-24] MEDS ORDERED: Non-Formulary Medication (Levothyroxine 175 MCG) PO SCH (08:30)
--- NOTE | 2017-05-24 10:51 | PCM.PNMED ---
Subjective Date of Service May 24, 2017 Subjective Patient seen and examined. Status post ORIF. No complaints. Alert, but oriented X 1 only. Vitals noted Exam Vital Signs Vital Sign - Last Date Time Temp Pulse Resp B/P Pulse Ox O2 Delivery O2 Flow Rate FiO2 05/24/17 05:13 37.3 88 20 134/72 98 Nasal Cannula 2.00 Intake and Output 05/23/17 05/23/17 05/24/17 Cumulative From/Thru 15:00 23:00 07:00 05/23/17 02:57 - 05/24/17 06:27 Intake Total 1100 ml 1742 ml 2842 ml Output Total 700 ml 500 ml 1400 ml Balance 400 ml 1242 ml 1442 ml Intake Oral 0 ml 0 ml 0 ml IV Total 1100 ml 1742 ml 2842 ml Output Urine Total 400 ml 500 ml 1100 ml Estimated Blood Loss 300 ml 300 ml # Voids 0 0 # Bowel Movements 0 0 1 Exam General: Alert, Oriented X1 Chest & Lungs: Clear to auscultation & percussion, No adventitious breath sounds, no crackles, no wheeze Cardiovascular: Normal S1, Normal S2, No Murmurs/Rubs/Gallops, Regular Rate/ Rhythm, Murmur, Other (No JVD, no peripheral edema) Pulses: Radial (present and equal), Dorsalis Pedi (present and equal) Abdomen: Soft, Non-tender, Non-distended, Normoactive bowel tones. Musculoskeletal: s/p ORIF left LE, dressings in place Extremities: No edema, no cyanosis, no clubbing, circulation intact Lab and Diagnostics Result Diagram: 05/24/1743905/24/17439 Assessment & Plan Sal Cleary is a 81 year old male with Hypertension, Alzheimer's disease, and Hypothyroidism who presents to [facility] emergency department via EMS complaining of left hip pain 1. Acute Left femoral neck fracture. Present on admission. s/p ORIF Patient is an acceptable candidate for surgery. No active cardiac conditions. Exercise tolerance is good and I do not recommend any further cardiac testing prior to this intermediate risk procedure - nothing by mouth and Dilaudid IV as need for pain, will transition to oral pain meds - continue his beta jun postoperatively - DVT prophylaxis with SCD boots, anticoagulation choice accordingly to Ortho - postoperative pain should be treated but psychoactive medications should be minimized to avoid delirium - post operative incentive spirometry - Dr Gilliland from ortho on board. 2 Acute Kidney injury. Present on admission, resolved Likely due to pre renal azotemia in the setting of hypovolemia - avoid nephrotoxic insults in hospital 3 Hypertension. Presumed stable - continue Toprol XL 25 mg daily 4 Hypothyroidism. - continue Levothyroxine 200 mcg daily 5 Advanced dementia, Alzheimer's type - continued Remeron 15 mg HS and Seroquel 25 mg HS 6 Hyperlipidemia. - continued Lipitor 20 mg daily - Acetaminophen as needed for mild pain/fever/headache - Bowel regimen as needed - Antiemetic as needed Patient admitted under inpatient status with expected length of stay > 2 midnights for severity of present symptoms, complexities of treatment plan and risk for adverse event . VTE Mechanical Devices: Intermittant Pneumatic CD Resuscitation Status: DNR/DNI:Do Not Resuscitate/Intubate Time spent 35 mins Hermann Montaño MD May 24, 2017 10:51
[2017-05-24 11:16] VITALS: BP 131/84; PULSE 83; RESP 20; O2SAT 96
[2017-05-24] MEDS: Senna-Docusate 8.6-50 mg Tablet PO SCH ×2 (11:56→22:19)
[2017-05-24] MEDS: MeTOProlol XL 25 mg ER24 Tablet PO SCH (11:56)
[2017-05-24 12:00] VITALS: BP 144/89; PULSE 91
--- NOTE | 2017-05-24 12:35 | NUR ---
Social Work: 2nd Attempted Initial Assessment DAP: EMR reviewed. Per pt's EMR, pt has dementia at baseline and is not an accurate historian. SW placed T/C to pt's NOK (daughter Mora Gambino [phone]) and left voicemail requesting return call - SW to follow-up with pt and family again today. TRAVON Nunez
[2017-05-24 14:10] VITALS: BP 147/73; PULSE 92; RESP 18; O2SAT 93
--- NOTE | 2017-05-24 14:49 | NUR ---
Social Work: Initial Assessment/Multi-Disciplinary Rounds D: EMR reviewed. Please see Initial Assessment linked to this note for more information. Pt is an 81 y/o male [place] - readmit risk score of 4 - for dementia/unwitnessed fall resulting in left hip fracture per H&P. Pt's insurance is Medicare and AARP Supplemental. PCP is Ricardo Saez MD. Pt is not an appropriate historian due to dementia dx. SW spoke with pt's daughter/Guardian Mora Gambino [phone] to conduct initial assessment. SW confirmed guardian ppw is on pt's chart. SW explained role and wrote phone number on white board. SW provided [facility] Discharge Planning Checklist and encouraged daughter to contact SW for any discharge planning questions. Pt discussed in multidisciplinary rounds. Pt is not medically stable for discharge at this time, anticipate 2 more days. Pt is POD1. No SW needs at this time, no MD orders received. SW will continue to follow for PT recommendations, anticipate possibility for SNF or rehab care at [facility], pending bedside assessment scheduled 05/25. Pt lives at [facility] with 0 stairs to and wheelchair access. Pt ambulates independently at baseline but owns a walker and and wheelchair from previous fx. Pt does not have hx at a SNF or with . Pt's daughter states that after last hip fx, pt was able to return to [facility] where he received PT and RN care for rehabilitation. Pt's daughter confirmed that she has been working with Kaci (Interim Director at [facility]) and Farrah (RN Highway Painter at [facility]) to coordinate bedside assessment. Per pt's daughter, [facility] willing to assess pt and consider rehab services at [facility]. This was done in the past and Farrah and Kaci are considering this again. Farrah is scheduled to see pt for bedside assessment tomorrow between and . SW confirmed that pt is not anticipated to discharge until Saturday or Saturday and bedside assessment for tomorrow would be ideal. A: Pt who resides at [facility] [place]. P: Pt to receive bedside assessment to determine if pt can return to [facility] with rehab services for hip fx. SW to follow-up with Farrah (RN Highway Painter at [facility]) regarding assessment. SW will continue to follow for needs. TRAVON Nunez Addendum: 05/24/17 at 1700 by ILAN WINTERS Amended: Links added.
--- NOTE | 2017-05-24 15:28 | NUR ---
Evaluation completed. Please go to "Notes" then click on "Assessments and Notes" (bottom left corner of screen). Then select appropriate discipline tab on top of screen.
--- NOTE | 2017-05-24 15:49 | PCM.PNORTH ---
Subjective Date of Service: May 24, 2017 Visit Information: Reason for Visit Left Hip Fracture/Dementia Surgery/Surgery Date left hip IM nailing 05/23/2017 Post-Op Day # 1 Date of Admission: May 23, 2017 at 05:10 Hospital Day # Subjective Patient is sleeping and does not awaken to verbal stimuli. His daughter is in the room and provides history. [facility] and is independent ambulator prior to this fall. Objective Exam Objective Patient is seen sitting up in bed, sleeping Vital Signs and I/O Vital Sign - Last Date Time Temp Pulse Resp B/P Pulse Ox O2 Delivery O2 Flow Rate FiO2 05/24/17 14:10 36.4 92 18 147/73 93 Room Air 05/24/17 11:16 1.50 Intake and Output 05/23/17 05/23/17 05/24/17 Cumulative From/Thru 15:00 23:00 07:00 05/23/17 02:57 - 05/24/17 06:27 Intake Total 1100 ml 1742 ml 2842 ml Output Total 700 ml 500 ml 1400 ml Balance 400 ml 1242 ml 1442 ml Intake Oral 0 ml 0 ml 0 ml IV Total 1100 ml 1742 ml 2842 ml Output Urine Total 400 ml 500 ml 1100 ml Estimated Blood Loss 300 ml 300 ml # Voids 0 0 # Bowel Movements 0 0 1 Lab & Micro Results Laboratory Tests Test 05/24/17 04:40 White Blood Count 6.3th/mm3 (3.8-10.1) Red Blood Count 3.18mil/mm3 (4.40-5.80) Hemoglobin 9.3g/dL (13.8-17.2) Hematocrit 29.6% (41.0-50.0) Mean Corpuscular Volume 93.1fL (81-100) Mean Corpuscular Hemoglobin 29.2pg (27.0-35.0) Mean Corpuscular Hemoglobin Concent 31.4% (32.0-37.0) Red Cell Distribution Width 14.1% (12.3-15.4) Platelet Count 115bil/L (150-400) Neutrophils (%) (Auto) 74.3% (40-74) Lymphocytes (%) (Auto) 13.6% (14-46) Monocytes (%) (Auto) 11.8% (4-12) Eosinophils (%) (Auto) 0% (0-5) Basophils (%) (Auto) 0% (0-3) Sodium Level 146mEq/L (134-144) Potassium Level 3.9mEq/L (3.5-5.2) Chloride Level 108mEq/L (97-108) Carbon Dioxide Level 25mmol/L (18-29) Blood Urea Nitrogen 23mg/dL (8-27) Creatinine 1.23mg/dL (0.76-1.27) Estimat Glomerular Filtration Rate 60mL/min (>59) Glucose Level 123mg/dL (60-99) Calcium Level 8.3mg/dL (8.5-10.1) Result Diagram: 05/24/1743905/24/17439 SURGICAL WOUND : Wound Location/Description Left lower extremity: Dressing is clean, dry and intact Activity: Activity per PT Catheters: None Assessment & Plan Impression POD #1 left hip IM nailing Problems: Plan Weightbearin% weightbearing left lower extremity with walker DVT prophylaxis: Xarelto 10 mg PO x 35 days post op Physical therapy for transfers, progressive ambulation, therapeutic exercise Wound care: PA will change dressing on postop day 2 Discharge plan: Discharge home to [facility] with HH services versus SNF in 2 days, when medically stable. Follow-up plan: In 2 weeks at [facility] with Dr. Gilliland for wound check and Xrays. VTE Prophylaxis: SCDs, Other (Xarelto 10 mg PO QD ) Resuscitation Status: DNR/DNI:Do Not Resuscitate/Intubate Greta Nielson PA-C May 24, 2017 15:48
--- NOTE | 2017-05-24 19:33 | NUR ---
Activity Pt sleeping majority of shift, awake intermittently, mumbled speech. FELDT scores - pain noted with movement otherwise appearing comfortable. Attempted to keep on 4-6hrs pain medication regimen. Continued bed mobility. Pt voiding - incont - brief in place. Care continues.
[2017-05-24 21:14] VITALS: BP 114/73; PULSE 75; RESP 16; O2SAT 95
--- NOTE | 2017-05-25 01:12 | NUR ---
ACTIVITY PT SLEEPING IN BED ALL SHIFT, ROUSES TO PAIN/STIMULATION. FELDT SCORE FOR PAIN MANAGEMENT, PRN NORCO GIVEN. PT COMBATIVE WITH CARE AND MOVEMENT. INCONT OF URINE, BRIEF IN PLACE. ACCEPTED SNACK AND FLUIDS. APPEARS COMFORTABLE. CARE CONTINUES
[2017-05-25] MEDS: HYDROcodone-APAP 5-325 mg Tablet PO PRN ×3 (06:27→20:28)
[2017-05-25 06:34] VITALS: BP 133/63; PULSE 108; RESP 18; O2SAT 94
[2017-05-25] MEDS: Senna-Docusate 8.6-50 mg Tablet PO SCH ×3 (08:30→20:30)
[2017-05-25] MEDS: MeTOProlol XL 25 mg ER24 Tablet PO SCH (08:37)
--- NOTE | 2017-05-25 11:07 | PCM.PNORTH ---
Subjective Date of Service: May 25, 2017 Visit Information: Reason for Visit Left Hip Fracture/Dementia Surgery/Surgery Date left hip IM nailing 05/23/2017 Post-Op Day # 2 Date of Admission: May 23, 2017 at 05:10 Hospital Day # Subjective Patient is an 81-year-old demented male. He responds a little bit name does not follow commands this morning. He does not appear to be in any pain. He sat at bedside physical therapy this morning Postop General: No Complaints Objective Exam Objective Patient is seen lying in bed Vital Signs and I/O Vital Sign - Last Date Time Temp Pulse Resp B/P Pulse Ox O2 Delivery O2 Flow Rate FiO2 05/25/17 06:34 37.0 108 18 133/63 94 Room Air 05/24/17 11:16 1.50 Intake and Output 05/24/17 05/24/17 05/25/17 Cumulative From/Thru 15:00 23:00 07:00 05/23/17 02:57 - 05/25/17 07:00 Intake Total 339 ml 240 ml 320 ml 3741 ml Output Total 150 ml 134 ml 1684 ml Balance 339 ml 90 ml 186 ml 2057 ml Intake Oral 240 ml 320 ml 560 ml IV Total 339 ml 3181 ml Output Urine Total 150 ml 134 ml 1384 ml Estimated Blood Loss 300 ml # Voids 1 1 # Bowel Movements 1 Lab & Micro Results Laboratory Tests Test 05/25/17 05:13 05/25/17 08:07 Hemoglobin 9.1g/dL (13.8-17.2) Hematocrit 27.7% (41.0-50.0) Sodium Level 141mEq/L (134-144) Potassium Level 3.5mEq/L (3.5-5.2) Chloride Level 106mEq/L (97-108) Carbon Dioxide Level 25mmol/L (18-29) Blood Urea Nitrogen 25mg/dL (8-27) Creatinine 1.32mg/dL (0.76-1.27) Estimat Glomerular Filtration Rate 55mL/min (>59) Glucose Level 129mg/dL (60-99) Calcium Level 7.9mg/dL (8.5-10.1) Result Diagram: 05/25/17 0513 05/25/17 0807 General Appearance: No Acute Distress Extremities: Distal Pulses Palpable, No Compartment Syndrom Noted, Thigh & Calf Soft/Nontender Postop Sensory Motor: Distal Motor Intact, Distal Sensation Intact, NVI Distally SURGICAL WOUND : Wound Location/Description Left lower extremity: Surgical dressings are removed. Wounds are well approximated and closed with shanice. There is no erythema or acute drainage present. There is minimal serous drainage on the dressing. Wounds were cleansed with hydrogen peroxide. Wounds were dressed with 2 x 2 gauze and Tegaderm at the distal and middle wounds. Proximal wound is covered with an island dressing. Activity: Activity per PT Catheters: None Assessment & Plan Impression POD #2 status post left hip IM nailing Problems: Plan Weightbearin% weightbearing left lower extremity with walker DVT prophylaxis: Xarelto 10 mg PO x 35 days post op [DC 06/28/2017] Physical therapy for transfers, progressive ambulation, therapeutic exercise Wound care: dressings changed today. Change dressings every 1-2 days or sooner if soiled. Discharge plan: Discharge home to [facility] with services versus SNF in 1-2 days, when medically stable. Follow-up plan: In 2 weeks at [facility] with Dr. Gilliland for wound check and Xrays. Pain Management: [place] VTE Prophylaxis: SCDs, Other (Xarelto 10 mg PO QD ) Resuscitation Status: DNR/DNI:Do Not Resuscitate/Intubate [place] CoveGreta Crabtree PA-C May 25, 2017 11:07
[2017-05-25 12:00] VITALS: BP 120/68; PULSE 82; RESP 20; O2SAT 95
--- NOTE | 2017-05-25 17:43 | NUR ---
Social Work: Continued Discharge Planning/Multidisciplinary Rounds D: EMR reviewed. Pt is on day 2 of hospitalization. Pt discussed in multidisciplinary rounds and is not medically stable for discharge at this time. ARGELIA placed T/C to Farrah at [facility] who completed assessment and confirmed they will accept pt back on Saturday. Farrah requested that MD write order for hospital bed. SW to request order tomorrow during multidisciplinary rounds. Farrah also stated that pt can only return if pt has HH PT coordinated. agreeable, ARGELIA requested HH order on 05/24 - not yet received. SW to follow-up with MD for HH order and discuss/coorindate HH choice with Guardian once order has been placed. Per Ortho, pt needs HH PT for transfers and limited ambulation. Per Farrah, [facility] has RN that can care for pt and make sure pt is being turned and monitor medications and vital after hospital stay. T/C to pt's daughter/guardian Mora Gambino to confirm pt has been accepted [facility]. Mora agreeable. ARGELIA discussed HH and stated that once places order, SW will follow-up with Mora and provide HH choice list/coordinate HH. Mora agreeable. Mora gave verbal signature for BRIANNA - SW discussed pt's right to appeal discharge. Mora agreeable. Noted on BRIANNA in chart. Farrah is scheduled to see pt for bedside assessment tomorrow between and . ARGELIA confirmed that pt is not anticipated to discharge until Saturday or Saturday and bedside assessment for tomorrow would be ideal. A: Pt who resides at [facility] [place] and for whom HH PT is medically necessary per Ortho P: Pt anticipated to return to [facility] (bedside assessment complete and Farrah from [facility] confirmed they will take pt back on Saturday). Farrah stated that SW must have HH coordinated for PT and send MD order for hospital bed to fax [phone]. SW to request HH order and order for hospital bed tomorrow during multidisciplinary rounds. SW to follow-up with guardian with HH choice list and coordinate prior to Saturday. No other needs at this time, SW will continue to follow. TRAVON Nunez
--- NOTE | 2017-05-25 18:26 | NUR ---
Wet cough/Pain Pt continues to have wet cough that is non-productive, SpO2 has been stable in mid90s on RA, but low grade fever noted today of 37.3C. MD notified and WBC lab ordered with swallow eval for aspiration risk. WBC's are elevated at 10.1 thousand. Swallow eval will be completed tomorrow. No signs of choking noted with feeding today. NOC RN gave 2 tablets [place] at 1630, which was effective for pain control but kept Sal very drowsy throughout shift. 1 tablet [place] given prior to last brief change and was inadequate based on patient agitation. Plan to attempt 1.5 tablets [place] for future pain control.
[2017-05-25 20:41] VITALS: BP 143/83; PULSE 90; RESP 17; O2SAT 96
--- NOTE | 2017-05-25 20:42 | NUR ---
PAIN; "ooch!" pt stated. "I hurt!". Pt repositioned. C/o left leg spasms. 1/2 tab of norco given with applesauce. Pt refused other h.s. pills. Pressed lips together. "You take it in your own mouth!" pt stated. Productive cough of yellow sputum noted on pts chin. V.s.s. Ortho checks seem wnl. Drgs c/d/i.
--- NOTE | 2017-05-25 21:00 | PCM.PNMED ---
Subjective Date of Service May 25, 2017 Subjective Pt is seen and examined. Laying in bed with eyes closed. He will be evaluated by his dementia home today Exam Vital Signs Vital Sign - Last Date Time Temp Pulse Resp B/P Pulse Ox O2 Delivery O2 Flow Rate FiO2 05/25/17 06:34 37.0 108 18 133/63 94 Room Air 05/24/17 11:16 1.50 Intake and Output 05/24/17 05/24/17 05/25/17 Cumulative From/Thru 15:00 23:00 07:00 05/23/17 02:57 - 05/25/17 07:00 Intake Total 339 ml 240 ml 320 ml 3741 ml Output Total 150 ml 134 ml 1684 ml Balance 339 ml 90 ml 186 ml 2057 ml Intake Oral 240 ml 320 ml 560 ml IV Total 339 ml 3181 ml Output Urine Total 150 ml 134 ml 1384 ml Estimated Blood Loss 300 ml # Voids 1 1 # Bowel Movements 1 Exam General: thin elderly gentleman sleeping HEENT: NCAT Neck: mild left sided JVD, unable to view L due to his head position Heart: irregular, soft systolic murmur Lungs: coughing with insp a bit, no wheezing, only ant carrion are heard due to position Abd: Soft, non tender Ext: Warm, no edema Vasc: palpable pedal pulse: Skin: Dressings over left hip IVs and Medications Medications Reviewed: Medications were reviewed in detail Lab and Diagnostics Result Diagram: 05/25/17 0513 05/24/17 0440 Assessment & Plan Sal Cleary is a 81 year old male with Hypertension, Alzheimer's disease, and Hypothyroidism who presents to [facility] emergency department via EMS complaining of left hip pain 1. Acute Left femoral neck fracture. Present on admission. s/p ORIF Per Dr. Montaño: "Patient is an acceptable candidate for surgery. No active cardiac conditions. Exercise tolerance is good and I do not recommend any further cardiac testing prior to this intermediate risk procedure" - DVT prophylaxis with SCD boots, anticoagulation choice accordingly to Ortho - postoperative pain should be treated but psychoactive medications should be minimized to avoid delirium - post operative incentive spirometry - Dr Gilliland from ortho on board. Recommends d/c in 1-2 days -- Pain Controlled with IV morphine Acute cough active 05/25 -- ST is ordered Acute Kidney injury. Present on admission, resolved Likely due to pre renal azotemia in the setting of hypovolemia - avoid nephrotoxic insults in hospital Hypertension chronic presumed stable Presumed stable - continue Toprol XL 25 mg daily Hypothyroidism chronic presumed stable - continue Levothyroxine 200 mcg daily Advanced dementia, Alzheimer's type - continued Remeron 15 mg HS and Seroquel 25 mg HS Hyperlipidemia. - continued Lipitor 20 mg daily - Acetaminophen as needed for mild pain/fever/headache - Bowel regimen as needed - Antiemetic as needed High risk medication: Morphine Patient admitted under inpatient status with expected length of stay > 2 midnights for severity of present symptoms, complexities of treatment plan and risk for adverse event . Pain Evaluation: Adequate Pain Control VTE Prophylaxis: SCDs, Other (Xarelto 10 mg PO QD ) VTE Mechanical Devices: Intermittant Pneumatic CD Resuscitation Status: DNR/DNI:Do Not Resuscitate/Intubate Time spent 30 min Cynthia Aguayo DO May 25, 2017 08:41
--- NOTE | 2017-05-26 02:05 | NUR ---
PAIN; slept well most of the night.
[2017-05-26 06:10] VITALS: BP 137/60; PULSE 81; RESP 18; O2SAT 94
[2017-05-26 08:00] VITALS: BP 141/78; PULSE 69; RESP 17; O2SAT 93
[2017-05-26] MEDS: Senna-Docusate 8.6-50 mg Tablet PO SCH ×2 (08:30→20:25)
[2017-05-26] MEDS: MeTOProlol XL 25 mg ER24 Tablet PO SCH (08:33)
--- NOTE | 2017-05-26 09:11 | PCM.PNMED ---
Subjective Date of Service May 26, 2017 Subjective Patient seen and examined. Alert, but not oriented. Vitals noted. Exam Vital Signs Vital Sign - Last Date Time Temp Pulse Resp B/P Pulse Ox O2 Delivery O2 Flow Rate FiO2 05/26/17 06:10 36.6 81 18 137/60 94 Room Air 05/24/17 11:16 1.50 Intake and Output 05/25/17 05/25/17 05/26/17 Cumulative From/Thru 15:00 23:00 07:00 05/23/17 02:57 - 05/26/17 06:26 Intake Total 799 ml 330 ml 4870 ml Output Total 150 ml 200 ml 2034 ml Balance 649 ml 130 ml 2836 ml Intake Oral 200 ml 130 ml 890 ml IV Total 599 ml 200 ml 3980 ml Output Urine Total 150 ml 200 ml 1734 ml Estimated Blood Loss 300 ml # Voids 1 2 # Bowel Movements 1 Exam General: thin elderly gentleman sleeping HEENT: NCAT Neck: mild left sided JVD, unable to view L due to his head position Heart: soft systolic murmur Lungs: coughing with insp a bit, no wheezing, only ant carrion are heard due to position Abd: Soft, non tender Ext: Warm, no edema Vasc: palpable pedal pulse: Skin: Dressings over left hip Lab and Diagnostics Result Diagram: 05/25/17 1437 05/25/17 0807 Assessment & Plan Sal Cleary is a 81 year old male with Hypertension, Alzheimer's disease, and Hypothyroidism who presents to [facility] emergency department via EMS complaining of left hip pain . Acute Left femoral neck fracture. Present on admission. s/p ORIF - DVT prophylaxis with SCD boots, anticoagulation choice accordingly to Ortho - postoperative pain should be treated but psychoactive medications should be minimized to avoid delirium - post operative incentive spirometry - Dr Gilliland from ortho on board. Recommends d/c in 1-2 days - Pain Controlled with norco Atrial fibrillation - h/o Sick sinus syndrome, status post dual chamber pacemaker placement in 2010 - goes in and out of sinus rythm with ventricular pacing - not on anticoagulation as per charts, however has been started on xarelto s/p ortho surgery, will continue xarelto for now, and have an outpatient assessment regarding anticoagulation, although considering advanced dementia, high fall risk Acute cough active 05/25 -- ST is ordered -- guafanisen prn Acute Kidney injury with likely history of CKD - continue current management - considering his Cr function has stayed intact around 1.30, this is likely CKD Hypertension chronic presumed stable Presumed stable - continue Toprol XL 25 mg daily Hypothyroidism chronic presumed stable - continue Levothyroxine 200 mcg daily Advanced dementia, Alzheimer's type - continued Remeron 15 mg HS and Seroquel 25 mg HS Hyperlipidemia. - continued Lipitor 20 mg daily - Acetaminophen as needed for mild pain/fever/headache - Bowel regimen as needed - Antiemetic as needed High risk medication: Morphine Patient admitted under inpatient status with expected length of stay > 2 midnights for severity of present symptoms, complexities of treatment plan and risk for adverse event . VTE Prophylaxis: SCDs, Other (Xarelto 10 mg PO QD ) VTE Mechanical Devices: Intermittant Pneumatic CD Resuscitation Status: DNR/DNI:Do Not Resuscitate/Intubate Time spent 35 mins Hermann Montaño MD May 26, 2017 09:11
[2017-05-26] MEDS ORDERED: guaiFENesin 20 mg/mL 10 mL Syrup PO PRN (09:25)
--- NOTE | 2017-05-26 11:26 | PCM.PNORTH ---
Subjective Date of Service: May 26, 2017 Visit Information: Reason for Visit Left Hip Fracture/Dementia Surgery/Surgery Date L Hip IM nail 05/23/2017 Post-Op Day # 3 Date of Admission: May 23, 2017 at 05:10 Hospital Day # Subjective Patient was a bit sedated yesterday after taking 2 Barton. He is now taking only 1. He requires 2 person max assist to sit up. Postop General: No Complaints Pain Management: PO Objective Exam Objective Patient is seen sitting up in bed. He responds to his name. He is not able to answer questions. He is not oriented to time or place. He does not appear to be in any distress. Vital Signs and I/O Vital Sign - Last Date Time Temp Pulse Resp B/P Pulse Ox O2 Delivery O2 Flow Rate FiO2 05/26/17 08:00 36.6 69 17 141/78 93 Room Air 05/24/17 11:16 1.50 Intake and Output 05/25/17 05/25/17 05/26/17 Cumulative From/Thru 15:00 23:00 07:00 05/23/17 02:57 - 05/26/17 06:26 Intake Total 799 ml 330 ml 4870 ml Output Total 150 ml 200 ml 2034 ml Balance 649 ml 130 ml 2836 ml Intake Oral 200 ml 130 ml 890 ml IV Total 599 ml 200 ml 3980 ml Output Urine Total 150 ml 200 ml 1734 ml Estimated Blood Loss 300 ml # Voids 1 2 # Bowel Movements 1 Lab & Micro Results Laboratory Tests Test 05/25/17 14:37 White Blood Count 10.1th/mm3 (3.8-10.1) Result Diagram: 05/25/17 1437 05/25/17 0807 Extremities: Distal Pulses Palpable, No Compartment Syndrom Noted, Thigh & Calf Soft/Nontender Postop Sensory Motor: Distal Motor Intact, Distal Sensation Intact, NVI Distally SURGICAL WOUND : Wound Location/Description Left hip: There are 3 incisions the lateral leg. The dressings are all clean, dry and intact. No drainage or erythema is seen. Activity: Activity per PT Catheters: None Assessment & Plan Impression POD #3 left hip IM nailing Problems: Plan Weightbearin% weightbearing left lower extremity with front wheeled walker DVT prophylaxis: Xarelto 10 mg PO x 35 days post op [DC 06/28/2017]. It is crushable if needed (verified by pharmacist). Rx is written today so prior authorization can be initiated Physical therapy for transfers, progressive ambulation, therapeutic exercise Dressings are pristine. Change dressings every 1-2 days or sooner if soiled. Showering: Patient may shower with wound covered with plastic for the next 2 weeks. Do not submerge the wounds underwater for 2 weeks. I spoke with BEVERLY Velazco, on the phone this morning and reviewed these discharge plans. She will plan on being here tomorrow morning for final review of instructions. Hospital bed has been ordered. Prescription is written today Discharge plan: Discharge home to [facility] with services nursing and PT on Saturday via S Follow-up plan: In 2 weeks at [facility] with Dr. Gilliladn for wound check, staple removal and Xrays. Pain Management: Barton VTE Prophylaxis: SCDs, Other (Xarelto 10 mg PO QD ) Resuscitation Status: DNR/DNI:Do Not Resuscitate/Intubate [place] HarborGreta Crabtree PA-C May 26, 2017 11:26
[2017-05-26] MEDS: HYDROcodone-APAP 5-325 mg Tablet PO PRN ×2 (11:29→20:25)
--- NOTE | 2017-05-26 13:05 | NUR ---
Consult received and appreciated. Attempted to see pt. x2 this date. Pt. refused the first time and sleeping the second attempt. Pt. would open eyes briefly then close them again. Per RN, pt. with munching pattern with purees and medications this am, with eventual swallow. Pt. currently on general diet. Suspect this is not appropriate as pt. with wet vocal quality at baseline and intermittent cough. Recommend downgrading pt. to puree and nectar thick liquids as tolerated. If pt. is noted to be coughing with PO intake, recommend pt. to be NPO. SENIOR PRICING ANALYST to follow and complete clinical bedside evaluation tomorrow when pt. is more alert and participating.
--- NOTE | 2017-05-26 13:49 | DRSVH ---
PROCEDURE: X-RAY CHEST ONE VIEW, PORTABLE ([id number]) INDICATIONS: worsening lung sounds left TECHNIQUE: One view of the chest was acquired. COMPARISON: None. FINDINGS: Surgical changes and devices: Pacemaker. Lungs and pleura: No pleural effusions or pneumothorax. Mild increased pulmonary vascularity. Mediastinum: Mediastinal contours appear normal. Heart size is normal. Bones and chest wall: No suspicious bony lesions. Overlying soft tissues appear unremarkable. IMPRESSION: Mild increased pulmonary vascularity suggestive of mild edema. Dictated by: Rosalina Brown M.D. on 05/26/2017 at 13:46 Approved by: Rosalina Brown M.D. on 05/26/2017 at 13:48
[2017-05-26 14:12] VITALS: BP 128/79; PULSE 74; RESP 18; O2SAT 98
--- NOTE | 2017-05-26 17:16 | NUR ---
Social Work: Readiness for Discharge/Multidisciplinary Rounds D: EMR reviewed. Pt is on day 3 of hospitalization. Pt discussed in multidisciplinary rounds and is medically stable for discharge back to [facility] with HH PT tomorrow. Farrah at [facility] confirmed they will accept pt back on Saturday. ARGELIA received a T/C from pt's Guardian stating that hospital bed orders are no longer needed as [facility] has coordinated hospital bed for pt. ARGELIA received HH order from . Per Manuel, pt needs HH PT for transfers and limited ambulation. Per Farrah, [facility] has RN that can care for pt and make sure pt is being turned and monitor medications and vital after hospital stay. T/C to pt's daughter/guardian Mora Kirdereje to determine HH choice. Choice list discussed over T/C and left in room. Mora selected . ARGELIA provided access. ARGELIA placed referral call to Kelly at who confirmed they can open with pt for PT on Saturday. ARGELIA provided with Mora's phone number, per her request, to coordinate scheduling. T/C to Mora to confirm pt will open with Saturday - Mora agreeable. A: Pt who resides at [facility] and for whom HH PT is medically necessary for transfers and limited ambulation. P: Pt to discharge to [facility] tomorrow via BLS. ARGELIA to request BLS order from . ARGELIA to have complete F2F and fax to once complete. No other needs at this time, ARGELIA will continue to follow. TRAVON Nunez
--- NOTE | 2017-05-26 17:46 | NUR ---
BM Large wet, runny, brown BM this afternoon; pt cleaned up, bedding changed and new brief placed. Will suggest NOC shift hold stool softeners. Care ongoing.
--- NOTE | 2017-05-26 18:37 | NUR ---
PO Medications/Cough Per phone conversation with daughter today, all pill medications need to be crushed and in applesauce. Pt compliant about taking AM medications with applesauce today. Cough noted this morning with assessment, RT called to bharat posterior LL lung crackles greater than R side. MD made aware and PO Robitussin ordered, given with 10ml syringe and pt took a long time to get down. Labs to be drawn in the AM tomorrow; care ongoing.
[2017-05-26 19:46] VITALS: BP 141/71; PULSE 79; RESP 20; O2SAT 96
--- NOTE | 2017-05-26 22:07 | NUR ---
CARE TRANSFERED; to [place] at 2200.
--- NOTE | 2017-05-27 03:26 | NUR ---
PSYCH; slept most of the night. Gets angry with attempts to reposition or change him. Moist cough.
[2017-05-27 05:00] VITALS: BP 142/76; PULSE 81; RESP 20; O2SAT 95
[2017-05-27] MEDS: MeTOProlol XL 25 mg ER24 Tablet PO SCH (08:26)
[2017-05-27] MEDS: HYDROcodone-APAP 5-325 mg Tablet PO PRN (08:26)
[2017-05-27] MEDS: Senna-Docusate 8.6-50 mg Tablet PO SCH ×2 (08:27→11:18)
[2017-05-27 08:44] VITALS: BP 138/74; PULSE 96; RESP 20; O2SAT 95
--- NOTE | 2017-05-27 09:05 | PCM.PNORTH ---
Subjective Date of Service: May 27, 2017 Visit Information: Reason for Visit Left Hip Fracture/Dementia Surgery/Surgery Date Post-Op Day # 4 Date of Admission: May 23, 2017 at 05:10 Hospital Day # Subjective Patient is lethargic and does not respond to verbal cues. He does not complain of pain at this time. Postop General: No Complaints Pain Management: PO Objective Exam Objective Patient laying in bed, does not respond to his name. Calf is soft, nontender. Dorsalis pedis pulse is present. Vital Signs and I/O Vital Sign - Last Date Time Temp Pulse Resp B/P Pulse Ox O2 Delivery O2 Flow Rate FiO2 05/27/17 08:44 36.8 96 20 138/74 95 Room Air 05/24/17 11:16 1.50 Intake and Output 05/26/17 05/26/17 05/27/17 Cumulative From/Thru 15:00 23:00 07:00 05/23/17 02:57 - 05/27/17 05:00 Intake Total 50 ml 50 ml 4970 ml Output Total 273 ml 2307 ml Balance 50 ml -223 ml 2663 ml Intake Oral 50 ml 50 ml 990 ml IV Total 3980 ml Output Urine Total 273 ml 2007 ml Estimated Blood Loss 300 ml # Voids 2 1 5 # Bowel Movements 1 0 2 Lab & Micro Results Laboratory Tests Test 05/27/17 04:40 White Blood Count 7.7th/mm3 (3.8-10.1) Creatinine 1.10mg/dL (0.76-1.27) Result Diagram: 05/27/17 0440 05/27/17 0440 General Appearance: No Acute Distress Extremities: Distal Pulses Palpable, Warm, No Compartment Syndrom Noted, Thigh & Calf Soft/Nontender Activity: Activity per PT Catheters: None Assessment & Plan Impression POD #4 left hip IM nailing Problems: Plan Weightbearin% weightbearing left lower extremity with front wheeled walker DVT prophylaxis: Xarelto 10 mg PO x 35 days post op [DC 06/28/2017]. It is crushable if needed (verified by pharmacist). Rx is written today so prior authorization can be initiated Physical therapy for transfers, progressive ambulation, therapeutic exercise Dressings are pristine. Please change dressings every 1-2 days or sooner if soiled. Showering: Patient may shower with wound covered with plastic for the next 2 weeks. Do not submerge the wounds underwater for 2 weeks. I spoke with BEVERLY Velazco, on the phone this morning and reviewed these discharge plans. She will plan on being here tomorrow morning for final review of instructions. Hospital bed has been ordered. Prescription is in chart Discharge plan: Discharge home to [facility] with services nursing and PT on Saturday via S Follow-up plan: In 2 weeks at [facility] with Dr. Gilliland for wound check, staple removal and Xrays. VTE Prophylaxis: SCDs, Other (Xarelto 10 mg PO QD ) Resuscitation Status: DNR/DNI:Do Not Resuscitate/Intubate Christie Lebron PA-C May 27, 2017 09:04
--- NOTE | 2017-05-27 10:23 | PCM.DIMED ---
Discharge Instructions Date of Service May 27, 2017 Dates of Hospitalization May 23, 2017 at 05:10 Discharge Diagnosis Discharge Diagnosis Hip fracture Medication Instructions Additional med instructions Xarelto 10 mg PO x 35 days post op [DC 06/28/2017] Diet Discharge Diet: Heart Healthy Activity Discharge Activity: Other (as per PT) Call your provider Call your provider for: Fever or Chills, Bleeding, Vomitting Patient Instructions Patient Instructions Please change dressings every 1-2 days or sooner if soiled. Showering: Patient may shower with wound covered with plastic for the next 2 weeks. Do not submerge the wounds underwater for 2 week Follow-up plan In 2 weeks at [facility] with Dr. Gilliland for wound check, staple removal and Xrays Provider: Brent Gilliland MD Follow-up in: 2 weeks Additional Information HH PT 2-3X week, for two weeks due to limited ambulation and strength training Weightbearin% weightbearing left lower extremity with front wheeled walker Hermann Montaño MD May 27, 2017 10:23
--- NOTE | 2017-05-27 11:39 | PCM.DC.MED ---
Discharge Summary Date of Service May 27, 2017 Dates of Hospitalization Date of Hospital Admission May 23, 2017 at 05:10 Date of Discharge: May 27, 2017 Providers: Admitting Physician: Naveen Cha MD Primary Care Physician: Alvaro Attending Physician: Hermann Montaño MD Diagnosis at Time of Discharge Diagnosis at Time of Discharge Hip fracture Brief History Sal Cleary is a 81 year old male with Hypertension, Alzheimer's disease, and Hypothyroidism who presents to [facility] emergency department via EMS complaining of left hip pain onset prior to arrival. Details of what happen is unclear and the patient is demented, unable to give any details. Daughter was able to provide some details. Staff at [facility] found the patient on the floor next to his chair in his bed room. It was suspected he might have fallen. The staff tried to get him up to his bed but the patient was uncomfortable and looked like he was in pain. They called 911 Patient had s hip fracture last year and under went surgery with no problems Case discussed with Dr Bush who contacted Dr Gilliland (Orthopedics). X ray confirmed hip fracture and the patient was admitted Hospital Course aSl Cleary is a 81 year old male with Hypertension, Alzheimer's disease, and Hypothyroidism who presents to [facility] emergency department via EMS complaining of left hip pain . Acute Left femoral neck fracture. Present on admission. s/p ORIF - Dr Gilliland from ortho did the surgery, follow up instructions in the chart Atrial fibrillation - h/o Sick sinus syndrome, status post dual chamber pacemaker placement in 2010 - goes in and out of sinus rythm with ventricular pacing - not on anticoagulation as per charts, however has been started on xarelto s/p ortho surgery, will continue xarelto for now, and have an outpatient assessment regarding anticoagulation, although considering advanced dementia, high fall risk Acute cough active 05/25, resolved -- guafanisen prn Acute Kidney injury with likely history of CKD, at baseline - continue current management - considering his Cr function has stayed intact around 1.30, this is likely CKD Hypertension chronic presumed stable Presumed stable - continue Toprol XL 25 mg daily Hypothyroidism chronic presumed stable - continue Levothyroxine 175 mcg daily Advanced dementia, Alzheimer's type - continued Remeron 15 mg HS and Seroquel 25 mg HS Hyperlipidemia. - continued Lipitor 20 mg daily - Acetaminophen as needed for mild pain/fever/headache - Bowel regimen as needed - Antiemetic as needed Exam Vital Signs (Last) Date Time Temp Pulse Resp B/P Pulse Ox O2 Delivery O2 Flow Rate FiO2 05/27/17 08:44 36.8 96 20 138/74 95 Room Air 05/24/17 11:16 1.50 Test 05/23/17 03:00 05/23/17 03:30 05/24/17 04:40 05/25/17 05:13 Prothrombin Time 10.0sec (8.1-12.5) Prothromb Time International Ratio 0.94ratio Magnesium Level 2.0mg/dL (1.6-2.6) Total Bilirubin 0.6mg/dL (0.0-1.2) Aspartate Amino Transf (AST/SGOT) 16U/L (0-50) Alanine Aminotransferase (ALT/SGPT) 12U/L (0-44) Alkaline Phosphatase 63U/L (25-160) Troponin T 0.010ug/L (0.0-0.011) Total Protein 6.9g/dL (6.4-8.4) Albumin 3.9g/dL (3.4-5.0) Hold Kendall Top Tube Received (Received) Urine Color Yellow (YELLOW) Urine Appearance Clear (CLEAR,HAZY) Urine pH 6.0 (5.0-8.0) Urine Specific [place] 1.020 (1.003-1.035) Urine Protein 30mg/dL (NEG,TRACE) Urine Glucose (UA) Negativemg/dL (NEGATIVE) Urine Ketones Tracemg/dL (NEGATIVE) Urine Occult Blood Negative (NEGATIVE) Urine Nitrite Negative (NEGATIVE) Urine Bilirubin Negative (NEGATIVE) Urine Urobilinogen Normalmg/dL (NORMAL) Urine Leukocyte Esterase Negative (NEGATIVE) Urine RBC 0-2/hpf (0-2) Urine WBC 0-5/hpf (0-5) Urine Epithelial Cells Few/hpf (NONE-MOD) Urine Crystals None seen (NONE SEEN) Urine Bacteria Few/hpf (NONE-FEW) Urine Hyaline Casts None/lpf (NONE) Urine Granular Casts None seen (NONE SEEN) Urine Waxy Casts None seen (NONE SEEN) Urine Red Blood Cell Casts None seen (NONE SEEN) Urine White Blood Cell Casts None seen (NONE SEEN) Urine Mucus None seen (None Seen) Urine Trichomonas None seen (NONE SEEN) Urine Yeast None (NONE SEEN) Urinalysis Comment None Urine Culture Reflexed Not indicated Red Blood Count 3.18mil/mm3 (4.40-5.80) Mean Corpuscular Volume 93.1fL (81-100) Mean Corpuscular Hemoglobin 29.2pg (27.0-35.0) Mean Corpuscular Hemoglobin Concent 31.4% (32.0-37.0) Red Cell Distribution Width 14.1% (12.3-15.4) Platelet Count 115bil/L (150-400) Neutrophils (%) (Auto) 74.3% (40-74) Lymphocytes (%) (Auto) 13.6% (14-46) Monocytes (%) (Auto) 11.8% (4-12) Eosinophils (%) (Auto) 0% (0-5) Basophils (%) (Auto) 0% (0-3) Hemoglobin 9.1g/dL (13.8-17.2) Hematocrit 27.7% (41.0-50.0) Test 05/25/17 08:07 05/27/17 04:40 Sodium Level 141mEq/L (134-144) Potassium Level 3.5mEq/L (3.5-5.2) Chloride Level 106mEq/L (97-108) Carbon Dioxide Level 25mmol/L (18-29) Blood Urea Nitrogen 25mg/dL (8-27) Estimat Glomerular Filtration Rate 55mL/min (>59) Glucose Level 129mg/dL (60-99) Calcium Level 7.9mg/dL (8.5-10.1) White Blood Count 7.7th/mm3 (3.8-10.1) Creatinine 1.10mg/dL (0.76-1.27) Discharge Medications Discharge Medications Aspirin (Aspirin) 81 Mg Tablet 81 MG PO DAILY (Reported) Levothyroxine (Levothyroxine) 175 Mcg Tablet 175 MCG PO DAILY (Reported) Mirtazapine (Remeron) 15 Mg Tablet 15 MG PO HS (Reported) Quetiapine Fumarate (Seroquel) 25 Mg Tablet 25 MG PO HS (Reported) As needed Acetaminophen (Acetaminophen) 325 Mg Tablet 650 MG PO Q4H PRN PRN For Fever ( Reported) Bisacodyl (Dulcolax Rectal) 10 Mg Supp.rect 10 MG RC DAILY PRN PRN For Bowel Movement (Reported) Miscellaneous Medications Galantamine ER (Galantamine ER) 24 Mg Cap24h.pel (Reported) Metoprolol Succinate ER (Metoprolol Succinate ER) 25 Mg Tab.er.24h (Reported) Additional med instructions Xarelto 10 mg PO x 35 days post op [DC 06/28/2017] Followup Plan Follow-up plan In 2 weeks at [facility] with Dr. Gilliland for wound check, staple removal and Xrays Discharge Diet: Heart Healthy Discharge Activity: Other (as per PT) Patient Instructions Please change dressings every 1-2 days or sooner if soiled. Showering: Patient may shower with wound covered with plastic for the next 2 weeks. Do not submerge the wounds underwater for 2 week Provider: Brent Gilliland MD Follow-up in: 2 weeks Time spent 35 mins Hermann Montaño MD May 27, 2017 11:39
[2017-05-27] MEDS ORDERED: HYDR-4003 PO (11:49)
--- NOTE | 2017-05-27 12:30 | NUR ---
Social Work: Discharge/Multidisciplinary Rounds D: EMR reviewed. Pt is on day 4 of hospitalization. Pt discussed in multidisciplinary rounds and is medically stable for discharge back to [facility] with PT tomorrow. Farrah at [facility] confirmed they will accept pt back on today. ARGELIA faxed discharge ppw to [facility] at [phone]. Geovany from [facility] confirmed open date and met with pt and guardian at bedside. F2F completed - Geovany retrieved. Per Farrah at [facility], [facility] has RN that can care for pt and make sure pt is being turned and monitor medications and vital after hospital stay. MD ordered received for BLS transport. T/C to [place] at [facility] who confirmed they can transport pt at 1300 today. PCS form completed and supporting documentation attached. PPW left at RN station and UA/RN updated on transport time. Guardian updated on transport time - all agreeable to time and discharge plan. A: Pt who resides at [facility] and for whom PT is medically necessary for transfers and limited ambulation. Pt for whom BLS transport is medically necessary. P: Pt to discharge to [facility] today via BLS ([facility]) at 1300. Geovany from [facility] met with pt and guardian at bedside and retrieved completed F2F. to open with pt at [facility] tomorrow. ARGELIA faxed discharge ppw to [facility] at [phone] per Farrah (Director) request. ARGELIA confirmed transport and discharge with pt, guardian, and RN at bedside. All updated and agreeable to plan. No other discharge needs, no other MD orders received. TRAVON Nunez
--- NOTE | 2017-05-27 12:42 | NUR ---
Discharge Sal is returning to [facility] with [facility] via BLS at 1300. All discharge teaching performed with his daughter Mora who is the DPOA with all questions answered. Confirmed with Carmen in pharmacy that his Glanatamine dose needed to be adjusted by his PCP if need be but he should resume at the lowest dose and titrate up to his current dose. Pain has been well managed with [address] [place]. Sedation has continued to be a concern and discussed with daughter trying Tylenol for pain management if the drowsiness continues. Report and updates given to Hilario at [facility]. Last bowel movement was yesterday. No stool softeners given this morning.
--- NOTE | 2017-05-27 13:52 | NUR ---
DISCHARGE ORDERS : Faxed orders and clinicals to Farrah Chen at [facility] in [place] [phone], received fax confirmation. Spoke with RN and she confirmed that there was hard script for pain medication, this was given to patient's legal guardian. Asked [employer] to follow up and confirm they were received.
== END 2017-05-27 13:04 | disposition home health service (06) | DRG 481 ==
LOC: EDUNIT# 02:30 → EDBD 02:30 → SED 02:30 → OSC 05:10
PROVIDERS: ADMIT Hospitalist; ATTEND Hospitalist
PROC: 0QS736Z Reposition Left Upper Femur with Intramedullary Internal Fixation Device, Percutaneous Approach (ICD-10-PCS; principal; 2017-05-23 16:30)
DX: S72.142A Displaced intertrochanteric fracture of left femur, initial encounter for closed fracture (principal); N17.9 Acute kidney failure, unspecified; G30.9 Alzheimer's disease, unspecified; F02.80 Dementia in other diseases classified elsewhere, unspecified severity, without behavioral disturbance, psychotic disturbance, mood disturbance, and anxiety; I10 Essential (primary) hypertension; W07.XXXA Fall from chair, initial encounter; Y92.199 Unspecified place in other specified residential institution as the place of occurrence of the external cause; Z95.0 Presence of cardiac pacemaker; E03.9 Hypothyroidism, unspecified; E78.5 Hyperlipidemia, unspecified; Z66 Do not resuscitate